=== PATIENT | female | born 1965 | race Caucasian/White ===

== ENCOUNTER 2019-07-28 19:29 | Inpatient (IN) | payer OTHER ==
[2019-07-28] MEDS ORDERED: fentaNYL (PF) 50 MCG/ML 2 ML AMP ONE (19:43)
[2019-07-28] MEDS ORDERED: LIDOCAINE 1% INJ 10MG/ML (20 ML MDV) SQ ONE (19:46)
[2019-07-28] MEDS ORDERED: fentaNYL (PF) 50 MCG/ML 2 ML AMP IV ONE (19:46)
[2019-07-28] MEDS ORDERED: MIDAZOLAM 2 MG/2 ML VIAL IV ONE (19:46)
[2019-07-28] MEDS ORDERED: SODIUM CHLORIDE 0.9% 500 ML 500 ML IV ONE (19:53)
[2019-07-28] MEDS ORDERED: RX INFO: IV CONTRAST WAS GIVEN 1 EACH MISC MISCELLANE PRN (20:16)
[2019-07-28] MEDS ORDERED: NITROGLYCERIN-D5W PMX 50 MG in DEXTROSE/WATER 1 250ML.BAG IV ONE (20:16)
[2019-07-28] MEDS ORDERED: IOPAMIDOL-370 125ML BTL INJ ONE (20:16)
[2019-07-28] MEDS ORDERED: LABETALOL 5 MG/ML VIAL MDV IVP ONE (20:20)
[2019-07-28] MEDS ORDERED: NITROGLYCERIN SL TABS 0.4 MG TAB SUBLINGUAL PRN (20:26)
--- NOTE | 2019-07-28 20:33 | P.CARDCATH ---
Date of Procedure: 07/28/19 Preoperative Diagnosis: Subacute HI Postoperative Diagnosis: Severe triple-vessel disease including left main Procedure(s) Performed: Left heart catheterization with selective coronary arteriography Description of Procedure: HISTORY: This is a 64-year-old female with no significant medical history who was admitted to [facility] emergency room with complaints of ongoing chest pain for 10 days. Complaining of burning sensation. Finally patient came to the hospital. She denied any nausea vomiting, sweating or shortness of breath. Initial EKG shows some Q waves and mild ST-T changes in the inferior leads. Patient had computed tomography scan of the chest and other evaluations. She was treated with Dilaudid and nitroglycerin with relief of pain. Patient also had significant elevation of the blood pressure. Her first troponin was 16 and subsequently went up to 45. Bedside echocardiogram showed hypokinesis of the inferior wall and also mid anterior wall. Ejection fraction is about 45%. Patient is advised to have cardiac catheterization for definitive diagnosis CONSENT:I have discussed the risks, benefits and alternative therapies for the above-mentioned procedure and for both sedation/analgesia as well as necessary blood product administration, if indicated, as they pertain to this patient. The patient has indicated understanding and acceptance of the risks and procedures discussed. PROCEDURE: Patient was brought to the lab in a fasting state. Patient was given some IV sedation. The right groin is infiltrated with lidocaine and right femoral artery was entered using Seldinger technique. A 6-Wolof catheter was left in place and selective coronary arteriography and was performed. Patient tolerated the procedure well. Femoral angiogram was performed and Angio-Seal was applied for hemostasis. No immediate complications were noted and patient was transferred to [facility] in a stable condition Conscious Sedation: Versed 2mg Fentanyl 50 g Duration 19minutes HEMODYNAMICS: The aortic pressure is about 200 110. Left ventricle end- diastolic pressure is about 15. No gradient across the aortic valve SELECTIVE CORONARY ARTERIOGRAPHY: LEFT MAIN: There is eccentric 60% stenosis of the distal left main extending into the origin of the LAD and also circumflex THE LEFT ANTERIOR DESCENDING CORONARY ARTERY: Ostial lesion. The rest of the LAD is free of occlusive disease. There is a diagonal branch which is about 80-90% stenosis involving the long segment THE LEFT CIRCUMFLEX AND IS CORONARY ARTERY: Moderate caliber vessel with diffuse disease. Provides collaterals to the distal RCA THE RIGHT CORONARY ARTERY: Nondominant and seemed to be chronically occluded LEFT VENTRICULOGRAPHY: Not performed FINAL IMPRESSION:, Severe triple-vessel disease including left main PLAN:. The case is reviewed with Dr. CARLOS Field. Suggested bypass surgery as soon as possible. Cardiac surgeon is consulted PROGNOSIS: Guarded
--- NOTE | 2019-07-28 20:38 | P.HPCAR ---
History of Present Illness H&P Date: 07/28/19 This is a 54-year-old female with family history of ischemic or disease presented to emergency room output [place] with complaints of burning chest pain for the last 10 days. Finally upon insistence of family. Patient came to the emergency room. Patient was having severe burning pain and high blood pressures on arrival. EKG shows some Q waves pattern and mild ST-T changes in inferior leads suggestive of possible subacute [place]. Her troponins initially were 16 and subsequently went up to 45. Her pains were relieved with IV nitroglycerin and Dilaudid. Because of ongoing symptoms and abnormal EKG patient is advised to have a cardiac catheterization and was brought to dental laboratory worker. At the time of my evaluation. Patient is not having any chest pain. Patient is tired. Denied any shortness of breath. Chest x-ray did not show any CHF. Review of Systems Not obtained Physical Exam Vitals: Intake and Output 07/28/19 07/28/19 07/28/19 06:59 14:59 22:59 Intake Total 300 Balance 300 Intake: IV 300 GENERAL EXAM: Patient is alert and oriented and doesn't appear to be in any acute distress HEENT: Normocephalic. Normal reaction of pupils, equal size, normal range of extraocular motion. No erythema or exudates in the throat. NECK: No masses, no nuchal rigidity. CHEST: No chest wall deformity. LUNGS: Equal air entry with no crackles or wheeze. HEART: S1 and S2 normal with no audible mumurs or gallops. Regular rhythm, femorals equal on both sides.. ABDOMEN: No hepatosplenomegaly, normal bowel sounds, no guarding or rigidity. SKIN: No rashes CENTRAL NERVOUS SYSTEM: No focal deficits. EXTREMITIES: No cyanosis, clubbing or edema. Physical Examination Intake and Output 07/28/19 07/28/19 07/28/19 06:59 14:59 22:59 Intake Total 300 Balance 300 Intake: IV 300 Results Current Medications Generic Name Dose Route Start Last Admin Trade Name Freq PRN Reason Stop Dose Admin Aspirin 81 mg 07/28/19 21:00 Aspirin PO HS VIRGEN Atorvastatin Calcium 80 mg 07/29/19 09:00 Lipitor PO DAILY REPLACED BY [facility] Sodium Chloride 1,000 mls @ 75 mls/hr 07/28/19 20:30 Saline 0.9% IV .[id number] REPLACED BY [facility] Metoprolol Tartrate 50 mg 07/28/19 21:00 Lopressor PO BID VIRGEN Miscellaneous Information 1 each 07/28/19 20:16 Rx Info: Iv Contrast Was Given MISCELLANE 07/30/19 20:16 DAILY PRN Per Protocol Nitroglycerin 0.4 mg 07/28/19 20:26 Nitrostat SUBLINGUAL Q5M PRN Chest Pain Intake and Output 07/28/19 07/28/19 07/28/19 06:59 14:59 22:59 Intake Total 300 Balance 300 Intake: IV 300 EKG Interpretations (text) Sinus rhythm with the ST-T changes in inferior leads with possible Q waves Assessment and Plan (1) Myocardial infarction Status: Acute Code(s): I21.9 - ACUTE MYOCARDIAL INFARCTION, UNSPECIFIED SNOMED Code(s): 34692583 (2) Essential hypertension Status: Acute Code(s): I10 - ESSENTIAL (PRIMARY) HYPERTENSION SNOMED Code(s): 70085032 (3) Anxiety Status: Acute Code(s): F41.9 - ANXIETY DISORDER, UNSPECIFIED SNOMED Code(s): 59972782 Plan: Procedure cardiac catheterization. Continue with IV heparin and IV nitroglycerin. Add beta ed, statin and aspirin. Get an echocardiogram. Further examination depend upon clinical course
[2019-07-28] MEDS: ASPIRIN 81 MG PO SCH (21:14)
[2019-07-28] MEDS: METOPROLOL TARTRATE 50 MG TAB PO SCH (21:14)
[2019-07-28] MEDS: SODIUM CHLORIDE 0.9% 1,000 ML IV SCH (21:21)
[2019-07-28] MEDS ORDERED: LABETALOL 5 MG/ML VIAL MDV IVP SCH (21:51)
[2019-07-28] MEDS: IBUPROFEN 200 MG TAB PO PRN (22:47)
[2019-07-28] MEDS ORDERED: ONDANSETRON 4 MG/2 ML VIAL IVP PRN (23:01)
[2019-07-28] MEDS ORDERED: LABETALOL 5 MG/ML VIAL MDV IVP PRN (23:37)
[2019-07-29 00:16] LABS: Magnesium 1.9 mg/dL (1.6-2.3)
[2019-07-29 01:31] LABS: T4, Free (Free Thyroxine) 1.38 ng/dL (0.78-2.19)
[2019-07-29 02:04] LABS: Appearance,Urine Clear (Clear); Bilirubin,Urine Negative (Negative); Blood,Urine Negative (Negative); Color,Urine Light Yellow; Glucose,Urine (UA) 4+ (Negative); Leukocyte Esterase,Urine Negative (Negative); Nitrite,Urine Negative (Negative); PH, Urine 5.5 (5.0-8.0); Protein,Urine Trace (Negative); Urobilinogen,Urine <2.0 mg/dL (<2.0)
[2019-07-29 02:08] LABS: Specific Gravity,Urine >1.050 (1.001-1.035)
[2019-07-29 02:10] LABS: Ketones,Urine 3+ (Negative)
[2019-07-29 02:35] LABS: Glucose,Whole Blood 262 mg/dL (75-99)
[2019-07-29 04:20] LABS: Glucose,Whole Blood 292 mg/dL (75-99)
[2019-07-29] MEDS: INSULIN ASPART (NovoLOG) 100 UNIT/ML VIAL SQ SCH ×5 (04:28→20:17)
[2019-07-29 05:55] LABS: Basophils % (A) 0 %; Eosinophils # (A) 0.1 k/uL (0-0.7); Eosinophils % (A) 0 %; HGB 14.3 gm/dL (11.4-16.0); Lymphocytes # (A) 3.1 k/uL (1.0-4.8); Lymphocytes % (A) 18 %; MCH 30.5 pg (25.0-35.0); MCHC 33.3 g/dL (31.0-37.0); MCV 91.5 fL (80.0-100.0); Mean Platelet Volume 8.2; Monocytes # (A) 0.7 k/uL (0-1.0); Monocytes % (A) 4 %; Neutrophils # (A) 13.1 k/uL (1.3-7.7); Neutrophils % (A) 76 %; Platelet Count 253 k/uL (150-450); RDW 12.7 % (11.5-15.5); WBC 17.1 k/uL (3.8-10.6)
[2019-07-29 06:04] LABS: INR 0.9 (<1.2); Partial Thromboplastin Time 22.4 sec (22.0-30.0); Prothrombin Time 9.7 sec (9.0-12.0)
[2019-07-29 06:16] LABS: ALT 38 U/L (4-34); AST 176 U/L (14-36); African American GFR (CKD) >90 (>60 ml/min/1.73 sqM); Albumin 3.5 g/dL (3.5-5.0); Alkaline Phosphatase 114 U/L (38-126); Anion Gap 9 mmol/L; Blood Urea Nitrogen 11 mg/dL (7-17); Calcium 8.5 mg/dL (8.4-10.2); Carbon Dioxide 20 mmol/L (22-30); Chloride 106 mmol/L (98-107); Cholesterol 293 mg/dL (<200); Glucose 272 mg/dL (74-99); HDL Cholesterol 34 mg/dL (40-60); Non-African American GFR(CKD) >90 (>60 ml/min/1.73 sqM); Potassium 4.1 mmol/L (3.5-5.1); Sodium 135 mmol/L (137-145); Total Bilirubin 0.5 mg/dL (0.2-1.3); Total Protein 6.3 g/dL (6.3-8.2)
[2019-07-29 06:37] LABS: Triglycerides 597 mg/dL (<150)
[2019-07-29 07:53] LABS: Glucose,Whole Blood 234 mg/dL (75-99)
[2019-07-29] MEDS ORDERED: ATORVASTATIN 80 MG TAB PO SCH (09:00)
--- NOTE | 2019-07-29 09:59 | US ---
EXAMINATION TYPE: US carotid duplex BILAT DATE OF EXAM: 07/29/2019 COMPARISON: NONE CLINICAL HISTORY: Pre-Op Cardiac Surgery. Pre op heart surgery. EXAM MEASUREMENTS: RIGHT: Peak Systolic Velocity (PSV) cm/sec ----- Right CCA: 59.5 ----- Right ICA: 125.9 ----- Right ECA: 249.3 ICA/CCA ratio: 2.1 RIGHT: End Diastole cm/sec ----- Right CCA: 14.4 ----- Right ICA: 25.4 ----- Right ECA: 31.3 LEFT: Peak Systolic Velocity (PSV) cm/sec ----- Left CCA: 74.1 ----- Left ICA: 121.0 ----- Left ECA: 115.9 ICA/CCA ratio: 1.6 LEFT: End Diastole cm/sec ----- Left CCA: 17.6 ----- Left ICA: 27.3 ----- Left ECA: 18.4 VERTEBRALS (direction of flow): Right Vertebral: Antegrade Left Vertebral: Antegrade Rhythm: Normal Elevated velocity Right ECA. No significant stenosis seen. IMPRESSION: 1. 50-69% BY DIAMETER STENOSIS OF THE PROXIMAL RIGHT ICA. 2. ELEVATED FLOW VELOCITY, RIGHT ECA. Criteria for Assigning % of Stenosis / Diameter reduction (Estimation based on the indirect measurements of the internal carotid artery velocities (ICA PSV). 1. Normal (no stenosis)=ICA PSV < 125 cm/s: ratio < 2.0: ICA EDV<40 cm/s. 2. Less than 50% stenosis=ICA PSV < 125 cm/s: ratio < 2.0: ICA EDV<40 cm/s. 3. 50 to 69% stenosis=ICA PSV of 125 to 230 cm/s: ration 2.0 ? 4.0: ICA EDV 40-100 cm/s. 4. Greater than 70% stenosis to near occlusion= ICA PSV > 230 cm/s: ratio > 4.0: ICA EDV > 100 cm/s. 5. Near occlusion= ICA PSV velocities may be low or undetectable: variable ratio and ICA EDV. 6. Total occlusion=unable to detect flow.
[2019-07-29] MEDS ORDERED: HEPARIN SODIUM,PORCINE 5,000 UNIT/ML 1 ML VIAL IV PRN (10:07)
[2019-07-29] MEDS ORDERED: HEPARIN SODIUM,PORCINE 5,000 UNIT/ML 1 ML VIAL IV ONE (10:07)
[2019-07-29] MEDS: IBUPROFEN 200 MG TAB PO PRN ×2 (10:28→17:37)
[2019-07-29] MEDS: ATORVASTATIN 80 MG TAB PO SCH (10:28)
[2019-07-29] MEDS: METOPROLOL TARTRATE 50 MG TAB PO SCH ×2 (10:28→20:19)
--- NOTE | 2019-07-29 10:28 | XR ---
EXAMINATION TYPE: XR chest 2V DATE OF EXAM: 07/29/2019 HISTORY: PreOp Cardiac Surgery. REFERENCE: NONE. FINDINGS: There are prominent lungs are clear. Tubing projects over the left clavicle. Heart size upper limits of normal. Pleural spaces are clear. IMPRESSION: PLEASE CORRELATE CLINICALLY FOR COPD.
[2019-07-29] MEDS: HEPARIN SOD,PORK IN 0.45% NACL 25,000 UNIT in 0.45% NACL 1 250ML.BAG IV SCH (10:31)
[2019-07-29] MEDS: MUPIROCIN 2% OINT 22 GM TUBE NASAL SCH ×2 (10:31→20:19)
[2019-07-29] MEDS: SODIUM CHLORIDE 0.9% 1,000 ML IV SCH ×2 (10:46→23:10)
--- NOTE | 2019-07-29 12:06 | ECHOF ---
Referral Reason:Chest pain and cardiomyopathy MEASUREMENTS -------- HEIGHT: 167.6 cm WEIGHT: 70.8 kg BP: 134/72 RVIDd: 2.4 cm (< 3.3) IVSd: 1.4 cm (0.6 - 1.1) LVIDd: 4.8 cm (3.9 - 5.3) LVPWd: 1.4 cm (0.6 - 1.1) IVSs: 1.6 cm LVIDs: 4.2 cm LVPWs: 1.7 cm LA Diam: 3.5 cm (2.7 - 3.8) LAESV Index (A-L): 21.27 ml/m Ao Diam: 2.9 cm (2.0 - 3.7) AV Cusp: 2.1 cm (1.5 - 2.6) MV EXCURSION: 18.872 mm (> 18.000) MV EF SLOPE: 96 mm/s (70 - 150) EPSS: 1.8 cm MV E Rivas: 1.13 m/s MV DecT: 162 ms MV A Rivas: 0.99 m/s MV E/A Ratio: 1.14 RAP: 5.00 mmHg RVSP: 31.31 mmHg FINDINGS -------- Sinus rhythm. This was a technically adequate study. The left ventricular size is normal. There is moderate concentric left ventricular hypertrophy. O verall left ventricular systolic function is mild-moderately impaired with, an EF between 40 - 45 %. Basal inferior LV wall motion is normal. Mid inferior LV wall motion is normal. Posterior hypok inesis The right ventricle is normal in size. Normal LA size by volume 22+/-6 ml/m2. The right atrium is normal in size. Interatrial and interventricular septum intact. The aortic valve is trileaflet and appears structurally normal. Mild mitral regurgitation is present. Mild tricuspid regurgitation present. Right ventricular systolic pressure is normal at < 35 mmHg. Trace/mild (physiologic) pulmonic regurgitation. The aortic root size is normal. Normal inferior vena cava with normal inspiratory collapse consistent with estimated right atrial pre ssure of 5 mmHg. There is no pericardial effusion. CONCLUSIONS -------- 1. Sinus rhythm. 2. This was a technically adequate study. 3. The left ventricular size is normal. 4. There is moderate concentric left ventricular hypertrophy. 5. Overall left ventricular systolic function is mild-moderately impaired with, an EF between 40 - 45 %. 6. Basal inferior LV wall motion is normal. 7. Mid inferior LV wall motion is normal. 8. Posterior hypokinesis 9. The right ventricle is normal in size. 10. Normal LA size by volume 22+/-6 ml/m2. 11. The right atrium is normal in size. 12. Interatrial and interventricular septum intact. 13. The aortic valve is trileaflet and appears structurally normal. 14. Mild mitral regurgitation is present. 15. Mild tricuspid regurgitation present. 16. Right ventricular systolic pressure is normal at < 35 mmHg. 17. Trace/mild (physiologic) pulmonic regurgitation. 18. The aortic root size is normal. 19. Normal inferior vena cava with normal inspiratory collapse consistent with estimated right atrial pressure of 5 mmHg. 20. There is no pericardial effusion. SLIDE FASTENER CHAIN ASSEMBLER: Anahi Martínez RDCS
[2019-07-29 12:54] LABS: Glucose,Whole Blood 237 mg/dL (75-99)
[2019-07-29 13:04] LABS: Hepatitis A Antibody IgM Non-Reactive (Non-Reactive); Hepatitis B Core IgM Non-Reactive (Non-Reactive); Hepatitis B Surface Antigen Non-Reactive (Non-Reactive); Hepatitis C IgG Antibody Non-Reactive (Non-Reactive)
[2019-07-29 14:24] LABS: Hemoglobin A1C 13.3 % (4.0-6.0)
--- NOTE | 2019-07-29 14:31 | PN ---
PROGRESS NOTE Mrs. Coto is a 64-year-old female who was admitted through emergency room at [facility] with a chest pains lasting for more than 10 days. Her troponins were high, suggestive of myocardial infarction. EKG also showed some subtle changes. Cardiac catheterization revealed total occlusion of the RCA with significant left main disease and also disease involving the ostial circumflex and LAD. The patient is felt to be not a candidate for a percutaneous intervention. She is awaiting to be evaluated and scheduled for open heart surgery. Echocardiogram showed hypokinesis of the inferior segment with ejection fraction of 40-45%. No valvular abnormalities noted. The patient has remained stable. Her groin is soft. No complaints of any chest pain or shortness of breath. Vital signs show blood pressure: 119/91, pulse rate is 84, respirations are 14, afebrile. Saturations are 96%. Lungs appear clear. Heart is regular. No JVD. No peripheral edema. FINAL IMPRESSION: 1. Acute myocardial infarction. 2. Triple-vessel disease including left main. 3. Cardiomyopathy with ejection fraction of 40-45 percent. PLAN: Continue current medical therapy including heparin. Surgical evaluation for open heart surgery as soon as possible. Prognosis is guarded. MMODL / IJN: [id number] /
--- NOTE | 2019-07-29 14:56 | P.GSCN ---
History of Present Illness Consult date: 07/29/19 Reason for Consult: Multivessel coronary artery disease, non-ST elevated myocardial infarction this admission, evaluation for myocardial revascularization surgery. Requesting physician: Harry Jack History of present illness: This is a 54-year-old female patient who does not follow with a primary care physician on a regular basis. She reports that she has not seen a primary care physician in over 30 years. Patient denies any past medical history. She presented to the emergency department yesterday at [facility] with complaints of severe chest pain which radiated across her back and down both of her arms to her elbows. She describes the pain as a heartburn type pain which had been present for about 2-3 weeks. She has been taking antacids without any relief. Her and daughters encouraged her to seek medical attention as the pain wasn't getting any better. She denies any complaints of fever, chills, nausea, vomiting, shortness of breath, presyncope, syncope or palpitations associated with the pain. A 12-lead EKG was completed which showed Q wave pattern with mild STT changes in her inferior leads which were suggestive of a possible subacute myocardial infarction. Her lab results at [facility] showed a WBC count 13.1, hemoglobin 17.0, hematocrit 48.9, elevated blood glucose of 531, AST 37 and a troponin of 16.0. Subsequently, the patient was transferred here to [facility] for further evaluation and treatment recommendations. She was seen by Dr. Jack from [facility]ology [facility] and a cardiac catheterization was perfor med which demonstrated a 60% stenosis to her left main coronary artery, and 80- 90% stenosis to her diagonal branch of her left anterior descending coronary artery, a chronically occluded right coronary artery and collaterals to her distal right coronary artery from her circumflex coronary artery. For further evaluation a 2-D echocardiogram was completed which showed her to have an overall left ventricular systolic function to be mild to moderately impaired with an ejection fraction between 40 and 45%, mild mitral valve regurgitation, mild tricuspid valve regurgitation and trace to mild pulmonic valve regurgitation. Due to the patient's presenting symptoms, elevated troponins, and heart catheterization results Dr. Dru Kelly from cardiothoracic surgery was consulted for further evaluation and recommendations on myocardial revascularization surgery. Review of Systems A 14 point review of systems was completed and was negative except as mentioned in the HPI. Past Medical History Past Medical History: No Reported History Additional Past Medical History / Comment(s): The patient seems to be essentially noncompliant. She has not seen a physician for around 30 years. She counseled above-mentioned comorbidities. History of Any Multi-Drug Resistant Organisms: None Reported Past Surgical History: No Surgical Hx Reported Past Anesthesia/Blood Transfusion Reactions: No Reported Reaction Past Psychological History: No Psychological Hx Reported Smoking Status: Current every day smoker Medications and Allergies Home Medications Medication Instructions Recorded Confirmed Type No Known Home Medications 07/28/19 07/28/19 History Allergies Allergy/AdvReac Type Severity Reaction Status Date / Time No Known Allergies Allergy Unverified 07/28/19 19:30 Surgical - Exam Vital Signs Temp Pulse Resp BP Pulse Ox 98.4 F 93 10 L 166/91 92 L 07/28/19 21:00 07/28/19 21:00 07/28/19 21:00 07/28/19 21:00 07/28/19 21:00 This is a 54-year-old patient who looks appears to be in no acute distress. She is alert, oriented 3. She is hemodynamically stable and is on no inotropic or pressor support. Oxygen saturations are 96% on room air. - General well developed, well nourished, no distress, no pain, obese - Eyes PERRL, normal ocular movement - ENT normal pinna, normal nares, normal mucosa, no hearing loss, no congestion, poor mcfp - Neck Neck is supple, no JVD. no masses, trachea midline, no venous distension carotid bruit: right - Respiratory Lung sounds are essentially clear throughout. No wheezes, rhonchi or crackles. Respirations are symmetrical and nonlabored. - Cardiovascular S1 and S2 present, negative for S3, gallop or murmur. Regular rhythm and rate. - Abdomen Abdomen is soft, nontender and nondistended. Active bowel sounds present in all 4 abdominal quadrants. No guarding or rigidity. No organomegaly appreciated. - Genitourinary Deferred - Rectum Deferred - Integumentary no rash, no growths, no abnormal pigmentation - Neurologic Cranial nerves II through XII intact. normal coordination, normal sensation - Musculoskeletal normal posture - Psychiatric oriented to time, oriented to person, oriented to place, speech is normal, memory intact Results - Labs 07/29/19 05:14 07/29/19 05:14 Abnormal Lab Results - Last 24 Hours (Table) 07/28/19 07/28/19 07/29/19 Range/Units 23:22 23:31 01:38 WBC (3.8-10.6) k/uL Neutrophils # (1.3-7.7) k/uL Sodium (137-145) mmol/L Carbon Dioxide (22-30) mmol/L Creatinine (0.52-1.04) mg/dL Glucose (74-99) mg/dL POC Glucose (mg/dL) (75-99) mg/dL AST (14-36) U/L ALT (4-34) U/L Troponin I 23.100 H* (0.000-0.034) ng/mL Triglycerides (<150) mg/dL Cholesterol (<200) mg/dL HDL Cholesterol (40-60) mg/dL TSH 6.130 H (0.465-4.680) mIU/L Ur Specific [place] >1.050 H (1.001-1.035) Urine Protein Trace H (Negative) Urine Glucose (UA) 4+ H (Negative) Urine Ketones 3+ H (Negative) 07/29/19 07/29/19 07/29/19 Range/Units 02:32 04:18 05:14 WBC (3.8-10.6) k/uL Neutrophils # (1.3-7.7) k/uL Sodium 135 L (137-145) mmol/L Carbon Dioxide 20 L (22-30) mmol/L Creatinine 0.39 L (0.52-1.04) mg/dL Glucose 272 H (74-99) mg/dL POC Glucose (mg/dL) 262 H 292 H (75-99) mg/dL AST 176 H (14-36) U/L ALT 38 H (4-34) U/L Troponin I (0.000-0.034) ng/mL Triglycerides 597 H (<150) mg/dL Cholesterol 293 H (<200) mg/dL HDL Cholesterol 34 L (40-60) mg/dL TSH (0.465-4.680) mIU/L Ur Specific [place] (1.001-1.035) Urine Protein (Negative) Urine Glucose (UA) (Negative) Urine Ketones (Negative) 07/29/19 07/29/19 07/29/19 Range/Units 05:14 05:14 07:52 WBC 17.1 H (3.8-10.6) k/uL Neutrophils # 13.1 H (1.3-7.7) k/uL Sodium (137-145) mmol/L Carbon Dioxide (22-30) mmol/L Creatinine (0.52-1.04) mg/dL Glucose (74-99) mg/dL POC Glucose (mg/dL) 234 H (75-99) mg/dL AST (14-36) U/L ALT (4-34) U/L Troponin I 20.800 H* (0.000-0.034) ng/mL Triglycerides (<150) mg/dL Cholesterol (<200) mg/dL HDL Cholesterol (40-60) mg/dL TSH (0.465-4.680) mIU/L Ur Specific [place] (1.001-1.035) Urine Protein (Negative) Urine Glucose (UA) (Negative) Urine Ketones (Negative) Diabetes panel 07/29/19 Range/Units 05:14 Sodium 135 L (137-145) mmol/L Potassium 4.1 (3.5-5.1) mmol/L Chloride 106 (98-107) mmol/L Carbon Dioxide 20 L (22-30) mmol/L BUN 11 (7-17) mg/dL Creatinine 0.39 L (0.52-1.04) mg/dL Glucose 272 H (74-99) mg/dL Calcium 8.5 (8.4-10.2) mg/dL AST 176 H (14-36) U/L ALT 38 H (4-34) U/L Alkaline Phosphatase 114 (38-126) U/L Total Protein 6.3 (6.3-8.2) g/dL Albumin 3.5 (3.5-5.0) g/dL Triglycerides 597 H (<150) mg/dL HDL Cholesterol 34 L (40-60) mg/dL Thyroid panel 07/28/19 Range/Units 23:22 TSH 6.130 H (0.465-4.680) mIU/L Calcium panel 07/29/19 Range/Units 05:14 Calcium 8.5 (8.4-10.2) mg/dL Albumin 3.5 (3.5-5.0) g/dL Pituitary panel 07/28/19 07/29/19 Range/Units 23:22 05:14 Sodium 135 L (137-145) mmol/L Potassium 4.1 (3.5-5.1) mmol/L Chloride 106 (98-107) mmol/L Carbon Dioxide 20 L (22-30) mmol/L BUN 11 (7-17) mg/dL Creatinine 0.39 L (0.52-1.04) mg/dL Glucose 272 H (74-99) mg/dL Calcium 8.5 (8.4-10.2) mg/dL TSH 6.130 H (0.465-4.680) mIU/L Adrenal panel 07/29/19 Range/Units 05:14 Sodium 135 L (137-145) mmol/L Potassium 4.1 (3.5-5.1) mmol/L Chloride 106 (98-107) mmol/L Carbon Dioxide 20 L (22-30) mmol/L BUN 11 (7-17) mg/dL Creatinine 0.39 L (0.52-1.04) mg/dL Glucose 272 H (74-99) mg/dL Calcium 8.5 (8.4-10.2) mg/dL Total Bilirubin 0.5 (0.2-1.3) mg/dL AST 176 H (14-36) U/L ALT 38 H (4-34) U/L Alkaline Phosphatase 114 (38-126) U/L Total Protein 6.3 (6.3-8.2) g/dL Albumin 3.5 (3.5-5.0) g/dL - Imaging Additional studies: Cardiac catheterization films and 2-D echocardiogram films reviewed by Dr. Dru Kelly. Assessment and Plan Assessment: 1. Symptomatic multivessel coronary artery disease with left main disease 2. Acute non-ST elevated myocardial infarction this admission 3. Hypertension 4. Dyslipidemia 5. Newly diagnosed diabetes mellitus, admission glucose of 531 6. Chronic ongoing tobacco abuse Plan: The patient was seen and examined at her bedside in the intensive care unit by Dr. Dru Kelly. Her chart and diagnostics were reviewed. Dr. Kelly discussed with the patient the findings on her heart catheterization and 2-D ech ocardiogram. Treatment options for were discussed with the patient including myocardial revascularization surgery. Risks and benefits of myocardial revascularization surgery discussed with the patient and knowing the risks and benefits the patient wishes to proceed with myocardial revascularization surgery. The patient will tentatively be scheduled for myocardial revascularization surgery with left internal mammary artery, left radial artery and endoscopic vein harvest on , 08/03/2019 to be performed by Dr. Kelly. Preoperative teaching and preoperative testing has been initiated. She will need medical optimization with aspirin, statin, beta ed, heparin drip and blood sugar control. Once her preoperative testing has been collected an STS risk score will be calculated in discussed with the patient by Dr. Kelly. A 5 m walk test will be completed with the patient tomorrow 07/30/2019. Dr. Kelly did discuss the above with Dr. Jack and he also is in agreement w ith the plan. The importance of smoking cessation has been discussed with the patient. Medical management and other comorbidities per primary care service and cardiology recommendations. We will repeat a CBC in the morning 07/30/2019, if her WBC count remains elevated infectious disease will be consulted for further evaluation and recommendations. Dr. Dodson from pulmonary medicine has been consulted for preoperative and postoperative pulmonary management. More recommendations to follow based on patient's clinical course. She did have a COVID 19 test completed at [facility] which demonstrated a negative result. Thank you Dr. Jack for this consult and we look forward to working with you in the care of this patient. Time with Patient: Greater than 30
[2019-07-29 16:10] LABS: Glucose,Whole Blood 281 mg/dL (75-99)
[2019-07-29] MEDS: ASPIRIN 81 MG PO SCH (20:19)
[2019-07-29 20:23] LABS: Glucose,Whole Blood 193 mg/dL (75-99)
[2019-07-29] MEDS ORDERED: INSULIN DETEMIR (LEVEMIR) 100 UNIT/ML SYR SQ SCH (21:00)
[2019-07-30 03:16] LABS: Basophils # (A) 0.1 k/uL (0-0.2); Basophils % (A) 0 %; Eosinophils # (A) 0.1 k/uL (0-0.7); Eosinophils % (A) 1 %; HCT 41.2 % (34.0-46.0); HGB 13.8 gm/dL (11.4-16.0); Lymphocytes # (A) 4.1 k/uL (1.0-4.8); Lymphocytes % (A) 32 %; MCH 30.8 pg (25.0-35.0); MCHC 33.6 g/dL (31.0-37.0); MCV 91.6 fL (80.0-100.0); Mean Platelet Volume 9.4; Monocytes # (A) 0.7 k/uL (0-1.0); Monocytes % (A) 6 %; Neutrophils # (A) 7.9 k/uL (1.3-7.7); Neutrophils % (A) 60 %; Platelet Count 224 k/uL (150-450); RDW 12.8 % (11.5-15.5); WBC 13.1 k/uL (3.8-10.6)
[2019-07-30 03:32] LABS: AST 258 U/L (14-36); African American GFR (CKD) >90 (>60 ml/min/1.73 sqM); Albumin 3.5 g/dL (3.5-5.0); Alkaline Phosphatase 144 U/L (38-126); Blood Urea Nitrogen 13 mg/dL (7-17); Calcium 8.7 mg/dL (8.4-10.2); Carbon Dioxide 19 mmol/L (22-30); Chloride 107 mmol/L (98-107); Glucose 214 mg/dL (74-99); Non-African American GFR(CKD) >90 (>60 ml/min/1.73 sqM); Total Bilirubin 0.6 mg/dL (0.2-1.3); Total Protein 6.2 g/dL (6.3-8.2)
[2019-07-30 03:44] LABS: ALT 117 U/L (4-34); Anion Gap 8 mmol/L; Potassium 3.7 mmol/L (3.5-5.1); Sodium 134 mmol/L (137-145)
[2019-07-30] MEDS ORDERED: Potassium Replacement Protocol 1 EACH MISC MISCELLANE PRN (06:19)
[2019-07-30] MEDS ORDERED: POTASSIUM CHLORIDE ER 20 MEQ TAB.ER PO SCH (07:00)
[2019-07-30 07:13] LABS: Glucose,Whole Blood 237 mg/dL (75-99)
[2019-07-30] MEDS: INSULIN ASPART (NovoLOG) 100 UNIT/ML VIAL SQ SCH (07:13)
[2019-07-30] MEDS ORDERED: ACETAMINOPHEN TAB 325 MG TAB PO PRN (07:29)
[2019-07-30] MEDS ORDERED: INSULIN DETEMIR (LEVEMIR) 100 UNIT/ML SYR SQ ONE (08:00)
[2019-07-30] MEDS ORDERED: IBUPROFEN 200 MG TAB PO PRN (08:06)
[2019-07-30] MEDS: METOPROLOL TARTRATE 50 MG TAB PO SCH ×2 (08:07→21:29)
[2019-07-30] MEDS: MUPIROCIN 2% OINT 22 GM TUBE NASAL SCH ×2 (08:08→21:39)
[2019-07-30] MEDS: ATORVASTATIN 80 MG TAB PO SCH (08:08)
--- NOTE | 2019-07-30 08:37 | P.CNPUL ---
History of Present Illness Consult date: 07/29/19 Chief complaint: Chest pain, possible bypass surgery History of present illness: A 54-year-old female patient came into the ED with burning chest pain of 10 days duration. The patient was having also elevated blood pressure on arrival. EKG showed Q-wave pattern and mild ST T-segment changes in inferior leads suggestive of subacute myocardial infarction. Troponins came back at 16 indicating a non- STEMI. Note that the subsequent troponin came at 45. The patient was given nitroglycerin and Dilaudid for pain. The patient was placed on a combination of aspirin, heparin and metoprolol 50 mg by mouth twice a day. The patient was subsequently taken for cardiac catheterization and the cath showed triple-vessel disease that was quite severe. Left main 60% stenosis distally extending into the origin of the LAD and circumflex. The LAD showed an ostial lesion and the rest of the LAD was free of any occlusive disease. There was a diagonal branch which included around 80-90% stenosis. The circumflex showed moderate caliber disease with collaterals to the distal RCA. The right coronary artery showed nondominant vessel and seemed to be chronically occluded. LV ventriculography was not done. Following that, the patient was brought in to the ICU for further monitoring. Cardiac thoracic consultation was placed in constellation for cardiac surgery. The patient is a chronic smoker. She smokes one half pack of cigarettes a day. Chest x-ray shows no acute abnormalities and essentially. She is currently on 2 L about 2 by nasal cannula at 96 L and we were able to put her down to room air oxygen. Note that her admission blood sugar was quite elevated above 500 at [facility]. She also has +4 glucose and urine indicating an underlying diabetes mellitus. Her triglyceride level is 597 related to her poor sugar control. Inadequate total cholesterol is at 293. Right carotid artery evaluation showed a 50-70% occlusion of the proximal right ICA. Left was essentially within normal limits without any stenosis. She is currently still on IV heparin. She was also placed on Avel[employer] stay. Coverage. She is hemodynamically stable. She was also started on high-dose statins for her hyperlipidemia. Review of Systems Constitutional: Denies chills, Denies fever Eyes: denies as per HPI, denies blurred vision, denies bulging eye, denies decreased vision, denies diplopia, denies discharge, denies dry eye, denies irritation, denies itching, denies pain, denies photophobia, denies loss of peripheral vision, denies loss of vision, denies tunnel vision/blind spots Ears: deny: decreased hearing, ear discharge, earache, tinnitus Ears, nose, mouth and throat: Denies headache, Denies sore throat Breasts: right: as per HPI, absent: change in shape, gynecomastia, masses, n ipple discharge, pain, skin changes, swelling Cardiovascular: Reports chest pain, Reports decreased exercise tolerance Respiratory: Reports as per HPI Gastrointestinal: Reports as per HPI Genitourinary: Reports as per HPI Menstruation: Reports as per HPI Musculoskeletal: Reports as per HPI Musculoskeletal: absent: ankle pain, ankle stiffness, ankle swelling Integumentary: Reports as per HPI Neurological: Reports as per HPI Psychiatric: Reports as per HPI Endocrine: Reports as per HPI Hematologic/Lymphatic: Reports as per HPI Allergic/Immunologic: Reports as per HPI Past Medical History Past Medical History: No Reported History Additional Past Medical History / Comment(s): The patient seems to be essen tiaestefaniay noncompliant. She has not seen a physician for around 30 years. She counseled above-mentioned comorbidities. History of Any Multi-Drug Resistant Organisms: None Reported Past Surgical History: No Surgical Hx Reported Past Anesthesia/Blood Transfusion Reactions: No Reported Reaction Past Psychological History: No Psychological Hx Reported Smoking Status: Current every day smoker Medications and Allergies Home Medications Medication Instructions Recorded Confirmed Type No Known Home Medications 07/28/19 07/28/19 History Allergies Allergy/AdvReac Type Severity Reaction Status Date / Time acetaminophen [From Tylenol] AdvReac Confusion Verified 07/30/19 08:05 Physical Exam Vitals: Vital Signs Temp Pulse Resp BP Pulse Ox 07/29/19 07:00 84 14 119/91 96 07/29/19 06:00 89 12 134/72 98 07/29/19 05:00 92 14 135/84 98 07/29/19 04:00 98.2 F 82 12 124/66 96 07/29/19 03:00 92 14 139/84 95 07/29/19 02:00 94 11 L 123/76 95 07/29/19 01:00 84 15 117/71 95 07/29/19 00:00 98.4 F 88 14 156/97 97 07/28/19 23:00 93 16 148/86 96 07/28/19 22:00 96 14 149/92 96 07/28/19 21:00 98.4 F 93 10 L 166/91 92 L Intake and Output 07/28/19 07/29/19 07/29/19 22:59 06:59 14:59 Intake Total 375 600 75 Output Total 0 0 Balance 375 600 75 Intake: IV 300 Intake, IV Titration 75 600 75 Amount Sodium Chloride 0.9% 1, 75 600 75 000 ml @ 75 mls/hr IV . [id number] [facility] Rx#:[id number] Output: Urine 0 0 Other: # Voids 1 # Bowel Movements 1 Weight 71.2 kg 71 kg The patient appeared well nourished and normally developed. Vital signs as documented. Head exam is unremarkable. No scleral icterus or corneal arcus noted. Neck is without jugular venous distension, thyromegaly, or carotid bruits. Carotid upstrokes are brisk bilaterally. Lungs are clear to auscultation and percussion. Cardiac exam reveals the PMI to be normally sized and situated. Rhythm is regular. First and second heart sounds normal. No murmurs, rubs or gallops. Abdominal exam reveals normal bowel sounds, no masses, no organomegaly and no aortic enlargement. Extremities are nonedematous and both femoral and pedal pulses are normal.Examination of the skin revealed no evidence of si gnificant rashes, suspicious appearing nevi or other concerning lesions. Neurologically awake and alert and is no focal neurological deficits. Results - Laboratory Findings CBC and BMP: 07/30/19 02:34 07/30/19 02:34 PT/INR, D-dimer PT 9.7 sec (9.0-12.0) 07/29/19 05:14 INR 0.9 (<1.2) 07/29/19 05:14 Abnormal lab findings: Abnormal Labs 07/28/19 07/28/19 07/29/19 23:22 23:31 01:38 WBC Neutrophils # Sodium Carbon Dioxide Creatinine Glucose POC Glucose (mg/dL) AST ALT Troponin I 23.100 H* Triglycerides Cholesterol HDL Cholesterol TSH 6.130 H Ur Specific [place] >1.050 H Urine Protein Trace H Urine Glucose (UA) 4+ H Urine Ketones 3+ H 07/29/19 07/29/19 07/29/19 02:32 04:18 05:14 WBC Neutrophils # Sodium 135 L Carbon Dioxide 20 L Creatinine 0.39 L Glucose 272 H POC Glucose (mg/dL) 262 H 292 H AST 176 H ALT 38 H Troponin I Triglycerides 597 H Cholesterol 293 H HDL Cholesterol 34 L TSH Ur Specific [place] Urine Protein Urine Glucose (UA) Urine Ketones 07/29/19 07/29/19 07/29/19 05:14 05:14 07:52 WBC 17.1 H Neutrophils # 13.1 H Sodium Carbon Dioxide Creatinine Glucose POC Glucose (mg/dL) 234 H AST ALT Troponin I 20.800 H* Triglycerides Cholesterol HDL Cholesterol TSH Ur Specific [place] Urine Protein Urine Glucose (UA) Urine Ketones - Diagnostic Findings Chest x-ray: image reviewed Assessment and Plan Plan: 1 acute non-ST segment elevation myocardial infarction with secondary chest pain. The patient is post cardiac catheterization indicating multivessel cor onary artery disease 2 multivessel coronary artery disease with triple-vessel involvement, and the patient has completed a cardiac catheterization awaiting a CT surgery evaluation regarding the possibility of coronary artery bypass surgery. She has several risk factors for coronary artery disease 3 diabetes mellitus, recently diagnosed, elevated blood sugar currently on insulin scale coverage. The patient has +4 glucose and ketone the urine 4 hypertension 5 hypertriglyceridemia rated to poorly controlled blood sugars 6 hypercholesterolemia 7 smoker 8 mild leukocytosis 9 right carotid artery disease in order of 50-69% Plan Bedside spirometry to assess FEV1 Provide the patient incentive spirometer Chest x-ray was reviewed Continue aspirin and IV heparin Continue metoprolol Continue Lipitor Continue the sliding scale coverage and the patient would likely lead long- acting insulin at a later stage Obviously, her medication noncompliance or medical poor compliance may be an issue even if surgery is performed in this patient We'll continue to follow and will make further recommendations based on her progress
--- NOTE | 2019-07-30 11:41 | P.PN ---
Subjective Progress Note Date: 07/30/19 On today's evaluation of 07/30/2019, the patient has no specific complaints she is resting comfortably in bed. She remains on IV heparin. She is free of any angina. She is awaiting cardiac bypass surgery that will be done on Wednesday which is 2 days from now. No chest pain. She is a chronic smoker. Her FEV1 is order of 47% of predicted consistent with moderately restrictive disease related to her poor effort. Her exhalation was less than 6 seconds and this is a suboptimal spirometry which is noted with reflection of an underlying lung capacity. She gave a very poor effort on these spirometry is. The patient was also noted to be somewhat steady her gait. I think she needs to be investigated further with a CAT scan of the brain as part of her workup or preop workup for cardiac surgery. No other new complaints otherwise for now. She looks a bit indifferent about her health. Her STS score and is to be also calculated. Objective - Vital Signs Vital signs: Vital Signs Temp 99.3 F 07/30/19 08:00 Pulse 72 07/30/19 11:00 Resp 19 07/30/19 11:00 BP 121/64 07/30/19 11:00 Pulse Ox 94 L 07/30/19 11:00 Intake & Output 07/29/19 07/30/19 07/30/19 18:59 06:59 18:59 Intake Total 900 985.342 375 Output Total 0 0 0 Balance 900 985.342 375 Weight 71 kg Intake: IV 825 900 375 Sodium Chloride 0.9% 1, 825 900 375 000 ml @ 75 mls/hr IV . [id number] [facility] Rx#:[id number] Intake, IV Titration 75 85.342 Amount Heparin Sod,Pork in 0.45% 85.342 NaCl 25,000 unit In 0.45 % NaCl 1 250ml.bag @ 12 UNITS/KG/HR 8.52 mls/hr IV .Q24H [facility] Rx#: [id number] Sodium Chloride 0.9% 1, 75 000 ml @ 75 mls/hr IV . [id number] [facility] Rx#:[id number] Output: Urine 0 0 0 Other: Voiding Method Toilet # Voids 1 1 1 - Exam This is a 54-year-old patient who looks appears to be in no acute distress. She is alert, oriented 3. She is hemodynamically stable and is on no inotropic or pressor support. Oxygen saturations are 96% on room air. - General well developed, well nourished, no distress, no pain, obese - Eyes PERRL, normal ocular movement - ENT normal pinna, normal nares, normal mucosa, no hearing loss, no congestion, poor retirement - Neck Neck is supple, no JVD. no masses, trachea midline, no venous distension carotid bruit: right - Respiratory Lung sounds are essentially clear throughout. No wheezes, rhonchi or crackles. Respirations are symmetrical and nonlabored. - Cardiovascular S1 and S2 present, negative for S3, gallop or murmur. Regular rhythm and rate. - Abdomen Abdomen is soft, nontender and nondistended. Active bowel sounds present in all 4 abdominal quadrants. No guarding or rigidity. No organomegaly appreciated. - Genitourinary Deferred - Rectum Deferred - Integumentary no rash, no growths, no abnormal pigmentation - Neurologic Cranial nerves II through XII intact. normal coordination, normal sensation - Musculoskeletal normal posture - Psychiatric oriented to time, oriented to person, oriented to place, speech is normal, memory intact - Labs CBC & Chem 7: 07/30/19 02:34 07/30/19 02:34 Labs: Abnormal Lab Results - Last 24 Hours (Table) 07/29/19 07/29/19 07/29/19 Range/Units 05:14 12:51 16:09 WBC (3.8-10.6) k/uL Neutrophils # (1.3-7.7) k/uL APTT (22.0-30.0) sec Sodium (137-145) mmol/L Carbon Dioxide (22-30) mmol/L Creatinine (0.52-1.04) mg/dL Glucose (74-99) mg/dL POC Glucose (mg/dL) 237 H 281 H (75-99) mg/dL Hemoglobin A1c 13.3 H (4.0-6.0) % AST (14-36) U/L ALT (4-34) U/L Alkaline Phosphatase (38-126) U/L Troponin I (0.000-0.034) ng/mL Total Protein (6.3-8.2) g/dL 07/29/19 07/29/19 07/30/19 Range/Units 18:34 20:13 02:34 WBC 13.1 H (3.8-10.6) k/uL Neutrophils # 7.9 H (1.3-7.7) k/uL APTT 38.1 H (22.0-30.0) sec Sodium (137-145) mmol/L Carbon Dioxide (22-30) mmol/L Creatinine (0.52-1.04) mg/dL Glucose (74-99) mg/dL POC Glucose (mg/dL) 193 H (75-99) mg/dL Hemoglobin A1c (4.0-6.0) % AST (14-36) U/L ALT (4-34) U/L Alkaline Phosphatase (38-126) U/L Troponin I (0.000-0.034) ng/mL Total Protein (6.3-8.2) g/dL 07/30/19 07/30/19 07/30/19 Range/Units 02:34 02:34 02:34 WBC (3.8-10.6) k/uL Neutrophils # (1.3-7.7) k/uL APTT 56.0 H (22.0-30.0) sec Sodium 134 L (137-145) mmol/L Carbon Dioxide 19 L (22-30) mmol/L Creatinine 0.40 L (0.52-1.04) mg/dL Glucose 214 H (74-99) mg/dL POC Glucose (mg/dL) (75-99) mg/dL Hemoglobin A1c (4.0-6.0) % AST 258 H (14-36) U/L ALT 117 H (4-34) U/L Alkaline Phosphatase 144 H (38-126) U/L Troponin I 16.700 H* (0.000-0.034) ng/mL Total Protein 6.2 L (6.3-8.2) g/dL 07/30/19 Range/Units 07:02 WBC (3.8-10.6) k/uL Neutrophils # (1.3-7.7) k/uL APTT (22.0-30.0) sec Sodium (137-145) mmol/L Carbon Dioxide (22-30) mmol/L Creatinine (0.52-1.04) mg/dL Glucose (74-99) mg/dL POC Glucose (mg/dL) 237 H (75-99) mg/dL Hemoglobin A1c (4.0-6.0) % AST (14-36) U/L ALT (4-34) U/L Alkaline Phosphatase (38-126) U/L Troponin I (0.000-0.034) ng/mL Total Protein (6.3-8.2) g/dL Microbiology - Last 24 Hours (Table) 07/29/19 09:58 Nasal Screen MRSA/MSSA - Preliminary Nasopharyngeal Swab Assessment and Plan Plan: 1 acute non-ST segment elevation myocardial infarction with secondary chest p ain. The patient is post cardiac catheterization indicating multivessel coronary artery disease 2 multivessel coronary artery disease with triple-vessel involvement, and the patient has completed a cardiac catheterization awaiting a CT surgery evaluation regarding the possibility of coronary artery bypass surgery. She has several risk factors for coronary artery disease 3 diabetes mellitus, recently diagnosed, elevated blood sugar currently on insulin scale coverage. The patient has +4 glucose and ketone the urine 4 hypertension 5 hypertriglyceridemia rated to poorly controlled blood sugars 6 hypercholesterolemia 7 smoker 8 mild leukocytosis 9 right carotid artery disease in order of 50-69% Plan Bedside spirometry to assess FEV1 show that the patient has an FEV1 of 47% consistent with restrictive pattern more than obstructive pattern. I think her effort was poor and she blew only 3.9 second which is not meeting ATS standards. I there is something often this patient's understanding of her health and probably there may be a neurologic deficit and for that reason I'm recommending a neurology consultation and a CAT scan of the brain especially that her gait is somewhat dysfunctional. Awaiting the STS score. Provide the patient incentive spirometer Chest x-ray was reviewed Continue aspirin and IV heparin Continue metoprolol Continue Lipitor Continue the sliding scale coverage and the patient would likely lead long- acting insulin at a later stage Obviously, her medication noncompliance or medical poor compliance may be an issue even if surgery is performed in this patient We'll continue to follow and will make further recommendations based on her progress
--- NOTE | 2019-07-30 11:56 | P.PN ---
Subjective Progress Note Date: 07/30/19 Principal diagnosis: Multivessel coronary artery disease, non-ST elevated myocardial infarction this admission. This is a 54-year-old female patient who does not follow with a primary care physician on a regular basis. She reports that she has not seen a primary care physician in over 30 years. Patient denies any past medical history. She presented to the emergency department yesterday at [facility] with complaints of severe chest pain which radiated across her back and down both of her arms to her elbows. She describes the pain as a heartburn type pain which had been present for about 2-3 weeks. She has been taking antacids without any relief. Her and daughters encouraged her to seek medical attention as the pain wasn't getting any better. She denies any complaints of fever, chills, nausea, vomiting, shortness of breath, presyncope, syncope or palpitations associated with the pain. A 12-lead EKG was completed which showed Q wave pattern with mild STT changes in her inferior leads which were suggestive of a possible subacute myocardial infarction. Her lab results at [facility] showed a WBC count 13.1, hemoglobin 17.0, hematocrit 48.9, elevated blood glucose of 531, AST 37 and a troponin of 16.0. Subsequently, the patient was transferred here to [facility] for further evaluation and treatment recommendations. She was seen by Dr. Jack from [facility] and a cardiac catheterization was performed which demonstrated a 60% stenosis to her left main coronary artery, and 80-90% stenosis to her diagonal branch of her left anterior descending coronary artery, a chronically occluded right coronary artery and collaterals to her distal right coronary artery from her circumflex coronary artery. For further evaluation a 2-D echocardiogram was completed which showed her to have an overall left ventricular systolic function to be mild to moderately impaired with an ejection fraction between 40 and 45%, mild mitral valve regurgitation, mild tricuspid valve regurgitation and trace to mild pulmonic valve regurgitation. Due to the patient's presenting symptoms, elevated troponins, and heart catheterization results Dr. Dru Kelly from cardiothoracic surgery was consulted for further evaluation and recommendations on myocardial revascularization surgery. POD #2 left heart catheterization with selective coronary angiography performed by Dr. Jack. The patient was seen in follow-up at her bedside in the intensive care unit on 07/30/2019. She is sitting up to the bedside chair and is in no acute distress. She is awake, alert and oriented 3, is hemodynamically stable and is on no inotropic or pressor support. She denies any further complaints of chest pain in the last 24 hours and denies any complaints of shortness of breath. Oxygen saturation are 98% on room air. Bedside telemetry showing normal sinus rhythm heart rate 88. A carotid duplex study was completed yesterday as part of her preoperative workup for myocardial revascularization surgery which showed a 50- 69% stenosis of the proximal right internal carotid artery. Labs this morning show a WBC trending down and is currently 13.1, hemoglobin 13.8, hematocrit 41.2, platelets 224, sodium 134, potassium 3.7, CO2 19, BUN 13, creatinine 0.40, blood glucose 214, AST 258, ALT 117, alkaline phosphate 144 and her troponin is trending down at 16.700. IV fluids are running at 75 mL an hour of 0.9% normal saline and a heparin drip is infusing per protocol. A bedside 5 m walk test was completed with the patient and she was quite unsteady with ambulation bumping into the wall. Objective - Vital Signs Vital signs: Vital Signs Temp 99.3 F 07/30/19 08:00 Pulse 88 07/30/19 08:00 Resp 20 07/30/19 08:00 BP 144/83 07/30/19 08:00 Pulse Ox 98 07/30/19 08:00 Intake & Output 07/29/19 07/30/19 07/30/19 18:59 06:59 18:59 Intake Total 900 985.342 75 Output Total 0 0 Balance 900 985.342 75 Weight 71 kg Intake: IV 825 900 75 Sodium Chloride 0.9% 1, 825 900 75 000 ml @ 75 mls/hr IV . [id number] [facility] Rx#:[id number] Intake, IV Titration 75 85.342 Amount Heparin Sod,Pork in 0.45% 85.342 NaCl 25,000 unit In 0.45 % NaCl 1 250ml.bag @ 12 UNITS/KG/HR 8.52 mls/hr IV .Q24H [facility] Rx#: [id number] Sodium Chloride 0.9% 1, 75 000 ml @ 75 mls/hr IV . [id number] [facility] Rx#:[id number] Output: Urine 0 0 Other: # Voids 1 1 1 - Exam This is a pleasant 54-year-old female patient who is sitting up to the bedside chair in the intensive care unit. She is in no acute distress, remains hemodynamically stable and is currently on no inotropic or pressor support. Oxygen saturations are 98% on room air. - Constitutional General appearance: Present: average body habitus, cooperative, no acute distress - EENT Eyes: Present: PERRLA, poor dentition, normal appearance. Absent: scleral icterus ENT: Present: hearing grossly normal. Absent: thrush - Neck Details: Neck is supple, no JVD. Neck: Absent: lymphadenopathy Carotids: right: bruit present - Respiratory Details: Lung sounds are essentially clear throughout. Respirations are symmetrical and nonlabored. No wheezes, rhonchi or crackles present. Oxygen saturation 98% on room air. - Cardiovascular Details: Regular rhythm and rate. S1 and S2 present, negative for S3, gallop or murmur. No edema present. - Gastrointestinal Gastrointestinal Comment(s): Abdomen is soft, nontender and nondistended. Active bowel sounds present in all 4 abdominal quadrants. No guarding or rigidity. No organomegaly appreciated. - Integumentary Integumentary Comment(s): Skin is warm and dry. No clubbing or cyanosis is present. No rash or abnormal pigmentation is present. - Neurologic Neurologic: Present: CNII-XII intact - Musculoskeletal Musculoskeletal: Present: gait normal, strength equal bilaterally - Psychiatric Psychiatric Comment(s): Flat affect. Psychiatric: Present: A&O x's 3, intact judgment & insight - Allied health notes Allied health notes reviewed: nursing - Labs CBC & Chem 7: 07/30/19 02:34 07/30/19 02:34 Labs: Abnormal Lab Results - Last 24 Hours (Table) 07/29/19 07/29/19 07/29/19 Range/Units 05:14 12:51 16:09 WBC (3.8-10.6) k/uL Neutrophils # (1.3-7.7) k/uL APTT (22.0-30.0) sec Sodium (137-145) mmol/L Carbon Dioxide (22-30) mmol/L Creatinine (0.52-1.04) mg/dL Glucose (74-99) mg/dL POC Glucose (mg/dL) 237 H 281 H (75-99) mg/dL Hemoglobin A1c 13.3 H (4.0-6.0) % AST (14-36) U/L ALT (4-34) U/L Alkaline Phosphatase (38-126) U/L Troponin I (0.000-0.034) ng/mL Total Protein (6.3-8.2) g/dL 07/29/19 07/29/19 07/30/19 Range/Units 18:34 20:13 02:34 WBC 13.1 H (3.8-10.6) k/uL Neutrophils # 7.9 H (1.3-7.7) k/uL APTT 38.1 H (22.0-30.0) sec Sodium (137-145) mmol/L Carbon Dioxide (22-30) mmol/L Creatinine (0.52-1.04) mg/dL Glucose (74-99) mg/dL POC Glucose (mg/dL) 193 H (75-99) mg/dL Hemoglobin A1c (4.0-6.0) % AST (14-36) U/L ALT (4-34) U/L Alkaline Phosphatase (38-126) U/L Troponin I (0.000-0.034) ng/mL Total Protein (6.3-8.2) g/dL 07/30/19 07/30/19 07/30/19 Range/Units 02:34 02:34 02:34 WBC (3.8-10.6) k/uL Neutrophils # (1.3-7.7) k/uL APTT 56.0 H (22.0-30.0) sec Sodium 134 L (137-145) mmol/L Carbon Dioxide 19 L (22-30) mmol/L Creatinine 0.40 L (0.52-1.04) mg/dL Glucose 214 H (74-99) mg/dL POC Glucose (mg/dL) (75-99) mg/dL Hemoglobin A1c (4.0-6.0) % AST 258 H (14-36) U/L ALT 117 H (4-34) U/L Alkaline Phosphatase 144 H (38-126) U/L Troponin I 16.700 H* (0.000-0.034) ng/mL Total Protein 6.2 L (6.3-8.2) g/dL 07/30/19 Range/Units 07:02 WBC (3.8-10.6) k/uL Neutrophils # (1.3-7.7) k/uL APTT (22.0-30.0) sec Sodium (137-145) mmol/L Carbon Dioxide (22-30) mmol/L Creatinine (0.52-1.04) mg/dL Glucose (74-99) mg/dL POC Glucose (mg/dL) 237 H (75-99) mg/dL Hemoglobin A1c (4.0-6.0) % AST (14-36) U/L ALT (4-34) U/L Alkaline Phosphatase (38-126) U/L Troponin I (0.000-0.034) ng/mL Total Protein (6.3-8.2) g/dL Microbiology - Last 24 Hours (Table) 07/29/19 09:58 Nasal Screen MRSA/MSSA - Preliminary Nasopharyngeal Swab - Imaging and Cardiology Chest x-ray: report reviewed, image reviewed Assessment and Plan Assessment: 1. Symptomatic multivessel coronary artery disease with left main disease, she will tentatively be scheduled for myocardial revascularization surgery on , 08/03/2019. 2. Acute non-ST elevated myocardial infarction this admission 3. Hypertension 4. Dyslipidemia 5. Newly diagnosed diabetes mellitus, admission glucose of 531, hemoglobin A1c is 13.3 6. Chronic ongoing tobacco abuse 7. Elevated transaminase, AST is 258 and ALT is 117 8. Mild leukocytosis 9. Right internal carotid artery stenosis of 50-69% Plan: 1. Continue to optimize with medical management, aspirin, statin, beta ed, blood sugar control and heparin drip. 2. Continue to obtain preoperative testing, preoperative teaching reinforced. FEV1 result pending. 3. The patient is tentatively scheduled for myocardial revascularization surgery on , 08/03/2019 with ECHEVARRIA/left radial artery endoscopic harvest and endoscopic vein harvest, to be performed by Dr. Dru Kelly. 4. Encourage use of her incentive spirometry 10 times every hour while awake. 5. The importance of smoking cessation was discussed with the patient. 6. A 5 m walk test was completed this morning, time 1: 3.95 seconds, Time 2: 3. 41 seconds, Time 3: 4.50 seconds. 7. STS risk score will be calculated once the preoperative testing has all been obtained. 8. Continue to monitor for fevers, and daily labs. 9. Medical management/diabetic management per primary care service recommendations. 10. We will order a computed tomography scan of her brain without contrast due to her unsteady gait pattern and consulted Dr. Segura from neurology for preoperative clearance. 11. The patient will be placed on a insulin drip preoperatively for tight glucose control. 12. More recommendations to follow based on patient's clinical course. Time with Patient: Greater than 30
[2019-07-30] MEDS ORDERED: INSULIN REGULAR 100 UNIT in SODIUM CHLORIDE 0.9% 100 ML IV SCH (12:00)
[2019-07-30 12:07] LABS: Glucose,Whole Blood 197 mg/dL (75-99)
[2019-07-30] MEDS: HEPARIN SOD,PORK IN 0.45% NACL 25,000 UNIT in 0.45% NACL 1 250ML.BAG IV SCH (12:37)
[2019-07-30] MEDS: SODIUM CHLORIDE 0.9% 1,000 ML IV SCH (12:38)
[2019-07-30] MEDS ORDERED: RX INFO: IV CONTRAST WAS GIVEN 1 EACH MISC MISCELLANE PRN (13:38)
--- NOTE | 2019-07-30 13:40 | CT ---
EXAMINATION TYPE: CT brain wo con DATE OF EXAM: 07/30/2019 COMPARISON: There is an area of decreased attenuation HISTORY: Unsteady gait, dysfunction CT DLP: 995.8 mGycm Automated exposure control for dose reduction was used. FINDINGS: There is a focal area of decreased attenuation in the parietal lobe on the right. This measures 3.1 x 4.4 x 1.6 cm. Somewhat irregular in its outline. Central structures are midline. There is no evidence hydrocephalus. There is no midline shift or intr acranial blood. Visualized portions of the paranasal sinuses and mastoids are clear. IMPRESSION: ABNORMAL AREA OF LUCENCY IN THE RIGHT PARIETAL REGION MAY REPRESENT AN INFARCT. UNDERLYING PATHOLOGY SUCH A METASTASIS OF BRAIN TUMOR IS NOT EXCLUDED. A POSTCONTRAST SCAN IS SUGGESTED. THIS REPORT WAS PHONED TO LJ IN THE ICU AT THE TIME OF REPORTING.
[2019-07-30 13:53] LABS: Glucose,Whole Blood 217 mg/dL (75-99)
--- NOTE | 2019-07-30 14:29 | PN ---
PROGRESS NOTE Mrs. Coto is a 54-year-old female who was admitted to [facility] with chest pain and evidence of myocardial infarction. The patient had a cardiac catheterization and was found to have triple-vessel disease including left main. The patient is waiting to have bypass surgery. The patient does not complain of any chest pain or shortness of breath. The patient appears to be slightly imbalanced and inattentive. The patient had a CT scan of the brain, which showed a focal area of decreased attenuation in the parietal lobe on the right, which may represent an infarct. Underlying pathology such as metastatic brain tumor is not excluded. A post- contrast scan is suggested. Otherwise patient is clinically stable. Vital signs showed a blood pressure of about 140/86, pulse is about 67, afebrile, respirations of 15. LAB VALUES: [place] [address]. Electrolytes are within normal limits. The AST and ALT are elevated, which seem to be trending high. IMPRESSION: 1. Status post acute myocardial infarction. 2. Triple-vessel disease. 3. Abnormal liver enzymes, which seem to be getting worse. 4. Imbalance. CT scan showing some lucency in the parietal lobe which may be further evaluated. PLAN: We will continue to monitor liver enzymes studies. May hold atorvastatin at this time until further evaluation. Continue rest of the medications. Prognosis guarded. MMODL / IJN: [id number] /
--- NOTE | 2019-07-30 14:50 | CT ---
EXAMINATION TYPE: CT brain w con DATE OF EXAM: 07/30/2019 COMPARISON: Today HISTORY: Follow up for previous abnormal CT CT DLP: 1098.4 mGycm Automated exposure control for dose reduction was used. CONTRAST: Performed with IV Contrast, patient injected with 100 ml mL of Isovue 300. There is irregular 4 cm area of cerebral edema right posterior parietal lobe castro and white matter. T here is a similar 12 mm area of edema in the cortex right frontal lobe. There is 9 mm area of edema i n the white matter right posterior parietal lobe. There is irregular 2.5 cm area of edema in the medi al right occipital lobe. There is 1.6 cm area of hypodensity right posterior frontal lobe white matte r. There is no mass effect. There is no pathologic enhancement. The calvarium is intact. Cerebellum is intact. There is no evidence of posterior fossa mass. Temporal bones appear normal. IMPRESSION: Multiple foci of cerebral edema in the right cerebral hemisphere as above. No enhancing focus seen to suggest metastatic disease. These findings could relate to multiple acute or subacute ischemic infar cts.
[2019-07-30 14:59] LABS: Glucose,Whole Blood 182 mg/dL (75-99)
[2019-07-30 16:00] LABS: Glucose,Whole Blood 165 mg/dL (75-99)
[2019-07-30 17:12] LABS: Glucose,Whole Blood 118 mg/dL (75-99)
[2019-07-30 18:05] LABS: Glucose,Whole Blood 124 mg/dL (75-99)
[2019-07-30 19:07] LABS: Glucose,Whole Blood 124 mg/dL (75-99)
[2019-07-30 19:57] LABS: Glucose,Whole Blood 102 mg/dL (75-99)
[2019-07-30 20:55] LABS: Glucose,Whole Blood 97 mg/dL (75-99)
[2019-07-30] MEDS ORDERED: INSULIN DETEMIR (LEVEMIR) 100 UNIT/ML SYR SQ SCH (21:00)
--- NOTE | 2019-07-30 21:28 | P.CONS ---
History of Present Illness - History of Present Illness This is a pleasant 54 years old female with no significant past medical history. Patient is admitted on 07/27 where she was transferred from the [facility], initially patient presented with chest pain for 10-14 days. Thora-Klex heartburn and found to have elevated troponin, and patient was transferred to [facility]. Patient is with subacute AK Patient underwent cardiac cath and found to have triple-vessel disease, with 60% stenosis to her left main coronary artery, and 80-90% stenosis to her diagonal branch of her left anterior descending coronary artery, a chronically occluded right coronary artery with collaterals. Ejection fraction 40-45% Patient To the ICU on nitro drip Cardiovascular team has been consulted for possible CABG surgery with Dr. Kelly Currently patient remains on heparin drip and insulin drip for better sugar controlled, as well as baby aspirin. However patient was noticed to be bumping into stuff when she walks (patient states this is not new problem for her) also she has difficulty localizing subject in front of her for example her fan, stroke was suspected which was showed on CT of the brain. Which was done today showing abnormal area of lucency in the right parietal region may represent an infarct, by metastasis is not exclude. CTA of the brain showed multiple foci of cerebral edema in the right cerebral hemisphere. No enhancing focus seen to suggest metastatic disease, these findings could relate to multiple acute or subacute ischemic infarct However patient is fully awake and oriented, she denies blurred vision or slurred speech, no weakness or numbness in extremities. No headaches. She is hemodynamically stable Labs reviewed showing Leukocytosis 13.1 K, sodium 134, creatinine 0.4, glucose controlled, liver enzymes slightly elevated with AST 258 and ALT 117 , TSH within normal limits. Troponin is elevated on admission of 16.7. TSH 6.1 and free T4 1 0.3. Hemoglobin A1c is 13.3%. UA is not suggestive of infection. Current over a still detected. Hepatitis panel was negative Chest x-ray: COPD. Carotid Doppler showing 50-69% stenosis of the proximal right ICA MRI/A of the head and neck is ordered and pending Past Medical History Past Medical History: No Reported History Additional Past Medical History / Comment(s): The patient seems to be essentially noncompliant. She has not seen a physician for around 30 years. She counseled above-mentioned comorbidities. History of Any Multi-Drug Resistant Organisms: None Reported Past Surgical History: No Surgical Hx Reported Past Anesthesia/Blood Transfusion Reactions: No Reported Reaction Past Psychological History: No Psychological Hx Reported Smoking Status: Current every day smoker Medications and Allergies Home Medications Medication Instructions Recorded Confirmed Type No Known Home Medications 07/28/19 07/28/19 History Allergies Allergy/AdvReac Type Severity Reaction Status Date / Time acetaminophen [From Tylenol] AdvReac Confusion Verified 07/30/19 08:05 Physical Exam Vitals: Vital Signs Temp Pulse Resp BP Pulse Ox 07/30/19 12:00 98.9 F 67 15 142/86 07/30/19 11:00 72 19 121/64 94 L 07/30/19 10:00 76 19 130/75 94 L 07/30/19 09:00 76 22 146/84 95 07/30/19 08:00 99.3 F 88 20 144/83 98 07/30/19 07:00 87 16 140/80 96 07/30/19 06:00 80 15 147/87 95 07/30/19 05:00 78 15 137/84 95 07/30/19 04:00 99.5 F 76 14 134/73 95 07/30/19 03:00 76 14 138/77 95 07/30/19 02:00 78 16 136/76 94 L 07/30/19 01:00 73 16 130/93 96 07/30/19 00:00 99.0 F 75 16 136/80 96 07/29/19 23:00 79 14 140/89 96 07/29/19 22:00 80 14 108/70 97 07/29/19 21:00 80 15 106/77 98 07/29/19 20:00 98.9 F 93 14 123/83 99 07/29/19 19:00 80 19 116/82 92 L 07/29/19 18:00 85 23 122/78 94 L 07/29/19 17:00 79 19 134/73 98 07/29/19 16:00 99.8 F H 75 13 81/54 96 07/29/19 15:00 74 14 115/72 98 Intake and Output 07/29/19 07/30/19 07/30/19 22:59 06:59 14:59 Intake Total 685.342 600 534.868 Output Total 0 0 Balance 685.342 600 534.868 Intake: IV 600 600 375 Sodium Chloride 0.9% 1, 600 600 375 000 ml @ 75 mls/hr IV . [id number] [facility] Rx#:[id number] Intake, IV Titration 85.342 159.868 Amount Heparin Sod,Pork in 0.45% 85.342 159.868 NaCl 25,000 unit In 0.45 % NaCl 1 250ml.bag @ 12 UNITS/KG/HR 8.52 mls/hr IV .Q24H [facility] Rx#: [id number] Output: Urine 0 0 Other: Voiding Method Toilet # Voids 1 1 1 Weight 71 kg Results CBC & Chem 7: 07/30/19 02:34 07/30/19 02:34 Labs: Abnormal Lab Results - Last 24 Hours (Table) 07/29/19 07/29/19 07/29/19 Range/Units 05:14 16:09 18:34 WBC (3.8-10.6) k/uL Neutrophils # (1.3-7.7) k/uL APTT 38.1 H (22.0-30.0) sec Sodium (137-145) mmol/L Carbon Dioxide (22-30) mmol/L Creatinine (0.52-1.04) mg/dL Glucose (74-99) mg/dL POC Glucose (mg/dL) 281 H (75-99) mg/dL Hemoglobin A1c 13.3 H (4.0-6.0) % AST (14-36) U/L ALT (4-34) U/L Alkaline Phosphatase (38-126) U/L Troponin I (0.000-0.034) ng/mL Total Protein (6.3-8.2) g/dL 07/29/19 07/30/19 07/30/19 Range/Units 20:13 02:34 02:34 WBC 13.1 H (3.8-10.6) k/uL Neutrophils # 7.9 H (1.3-7.7) k/uL APTT (22.0-30.0) sec Sodium 134 L (137-145) mmol/L Carbon Dioxide 19 L (22-30) mmol/L Creatinine 0.40 L (0.52-1.04) mg/dL Glucose 214 H (74-99) mg/dL POC Glucose (mg/dL) 193 H (75-99) mg/dL Hemoglobin A1c (4.0-6.0) % AST 258 H (14-36) U/L ALT 117 H (4-34) U/L Alkaline Phosphatase 144 H (38-126) U/L Troponin I (0.000-0.034) ng/mL Total Protein 6.2 L (6.3-8.2) g/dL 07/30/19 07/30/19 07/30/19 Range/Units 02:34 02:34 07:02 WBC (3.8-10.6) k/uL Neutrophils # (1.3-7.7) k/uL APTT 56.0 H (22.0-30.0) sec Sodium (137-145) mmol/L Carbon Dioxide (22-30) mmol/L Creatinine (0.52-1.04) mg/dL Glucose (74-99) mg/dL POC Glucose (mg/dL) 237 H (75-99) mg/dL Hemoglobin A1c (4.0-6.0) % AST (14-36) U/L ALT (4-34) U/L Alkaline Phosphatase (38-126) U/L Troponin I 16.700 H* (0.000-0.034) ng/mL Total Protein (6.3-8.2) g/dL 07/30/19 07/30/19 Range/Units 12:05 13:51 WBC (3.8-10.6) k/uL Neutrophils # (1.3-7.7) k/uL APTT (22.0-30.0) sec Sodium (137-145) mmol/L Carbon Dioxide (22-30) mmol/L Creatinine (0.52-1.04) mg/dL Glucose (74-99) mg/dL POC Glucose (mg/dL) 197 H 217 H (75-99) mg/dL Hemoglobin A1c (4.0-6.0) % AST (14-36) U/L ALT (4-34) U/L Alkaline Phosphatase (38-126) U/L Troponin I (0.000-0.034) ng/mL Total Protein (6.3-8.2) g/dL Microbiology - Last 24 Hours (Table) 07/29/19 09:58 Nasal Screen MRSA/MSSA - Preliminary Nasopharyngeal Swab Assessment and Plan Assessment: Subacute mild cardiac infarction Ischemic cardiomyopathy with ejection fraction 40-45%. multiple foci of cerebral edema in the right cerebral hemisphere. could relate to multiple acute or subacute ischemic infarct 50-69% stenosis of the proximal right ICA Diabetes mellitus with hyperglycemia Hypertension Noncompliance Nicotine dependence Dyslipidemia Plan: This is a pleasant 54 years old female who presents with subacute AK and possible right stroke. Continue with aspirin, heparin drip, continue with insulin for better control of sugar. Continue with hydration. Continue with aspirin. MRI/A of the brain and neck. Patient is followed closely by several consultants including pulmonary/critical care team, beauty specialist. Cardiothoracic surgery team evaluated the patient for possible CABG. Neurology consult Labs and medication were reviewed.. Continue same treatment. Continue with symptomatic treatment. Resume home medication. Monitor lytes and vitals. DVT and GI prophylaxis. Further recommendations of the clinical course of the patient DVT prophylaxis: heparin GI Prophylaxis: Ppi Prognosis is guarded Thank you for consulting us, we will follow up
[2019-07-30] MEDS: ASPIRIN 81 MG PO SCH (21:29)
[2019-07-30 22:06] LABS: Glucose,Whole Blood 111 mg/dL (75-99)
[2019-07-30 23:12] LABS: Glucose,Whole Blood 135 mg/dL (75-99)
[2019-07-31 00:01] LABS: Glucose,Whole Blood 135 mg/dL (75-99)
[2019-07-31 01:03] LABS: Glucose,Whole Blood 137 mg/dL (75-99)
[2019-07-31] MEDS: CALCIUM CARBONATE 500 MG CHEWABLE PO PRN (01:17)
[2019-07-31 02:12] LABS: Glucose,Whole Blood 127 mg/dL (75-99)
[2019-07-31 03:23] LABS: Glucose,Whole Blood 108 mg/dL (75-99)
[2019-07-31 04:00] LABS: Glucose,Whole Blood 95 mg/dL (75-99)
[2019-07-31] MEDS: SODIUM CHLORIDE 0.9% 1,000 ML IV SCH ×2 (04:04→17:21)
[2019-07-31 04:52] LABS: Basophils % (A) 0 %; Eosinophils # (A) 0.2 k/uL (0-0.7); Eosinophils % (A) 2 %; HCT 39.5 % (34.0-46.0); HGB 13.3 gm/dL (11.4-16.0); Lymphocytes # (A) 4.1 k/uL (1.0-4.8); Lymphocytes % (A) 32 %; MCH 31.1 pg (25.0-35.0); MCHC 33.7 g/dL (31.0-37.0); MCV 92.1 fL (80.0-100.0); Mean Platelet Volume 9.5; Monocytes # (A) 0.8 k/uL (0-1.0); Monocytes % (A) 6 %; Neutrophils # (A) 7.4 k/uL (1.3-7.7); Neutrophils % (A) 58 %; Platelet Count 193 k/uL (150-450); RBC 4.28 m/uL (3.80-5.40); RDW 12.9 % (11.5-15.5); WBC 12.8 k/uL (3.8-10.6)
[2019-07-31 04:57] LABS: Glucose,Whole Blood 110 mg/dL (75-99)
[2019-07-31 06:01] LABS: ALT 140 U/L (4-34); AST 143 U/L (14-36); African American GFR (CKD) >90 (>60 ml/min/1.73 sqM); Alkaline Phosphatase 124 U/L (38-126); Anion Gap 7 mmol/L; Blood Urea Nitrogen 13 mg/dL (7-17); Calcium 8.4 mg/dL (8.4-10.2); Carbon Dioxide 20 mmol/L (22-30); Chloride 108 mmol/L (98-107); Glucose 101 mg/dL (74-99); Non-African American GFR(CKD) >90 (>60 ml/min/1.73 sqM); Potassium 3.3 mmol/L (3.5-5.1); Sodium 135 mmol/L (137-145); Total Bilirubin 0.5 mg/dL (0.2-1.3); Total Protein 5.4 g/dL (6.3-8.2)
[2019-07-31 06:11] LABS: Glucose,Whole Blood 120 mg/dL (75-99)
[2019-07-31 06:59] LABS: Glucose,Whole Blood 125 mg/dL (75-99)
[2019-07-31] MEDS: METOPROLOL TARTRATE 50 MG TAB PO SCH ×2 (07:55→21:06)
[2019-07-31] MEDS: PANTOPRAZOLE 40 MG/10 ML VIAL IVP SCH (07:55)
[2019-07-31] MEDS: MUPIROCIN 2% OINT 22 GM TUBE NASAL SCH ×2 (07:55→21:07)
[2019-07-31] MEDS: HEPARIN SOD,PORK IN 0.45% NACL 25,000 UNIT in 0.45% NACL 1 250ML.BAG IV SCH (08:17)
[2019-07-31 08:23] LABS: Glucose,Whole Blood 151 mg/dL (75-99)
[2019-07-31 09:21] LABS: Glucose,Whole Blood 136 mg/dL (75-99)
[2019-07-31] MEDS ORDERED: NITROGLYCERIN-D5W PMX 50 MG in DEXTROSE/WATER 1 250ML.BAG IV SCH (09:30)
[2019-07-31 09:59] LABS: Glucose,Whole Blood 127 mg/dL (75-99)
--- NOTE | 2019-07-31 10:03 | P.PN ---
Subjective Progress Note Date: 07/31/19 Principal diagnosis: Multivessel coronary artery disease, non-ST elevated myocardial infarction this admission. This is a 54-year-old female patient who does not follow with a primary care physician on a regular basis. She reports that she has not seen a primary care physician in over 30 years. Patient denies any past medical history. She presented to the emergency department yesterday at [facility] with complaints of severe chest pain which radiated across her back and down both of her arms to her elbows. She describes the pain as a heartburn type pain which had been present for about 2-3 weeks. She has been taking antacids without any relief. Her and daughters encouraged her to seek medical attention as the pain wasn't getting any better. She denies any complaints of fever, chills, nausea, vomiting, shortness of breath, presyncope, syncope or palpitations associated with the pain. A 12-lead EKG was completed which showed Q wave pattern with mild STT changes in her inferior leads which were suggestive of a possible subacute myocardial infarction. Her lab results at [facility] showed a WBC count 13.1, hemoglobin 17.0, hematocrit 48.9, elevated blood glucose of 531, AST 37 and a troponin of 16.0. Subsequently, the patient was transferred here to [facility] for further evaluation and treatment recommendations. She was seen by Dr. Jack from [facility] and a cardiac catheterization was performed which demonstrated a 60% stenosis to her left main coronary artery, and 80-90% stenosis to her diagonal branch of her left anterior descending coronary artery, a chronically occluded right coronary artery and collaterals to her distal right coronary artery from her circumflex coronary artery. For further evaluation a 2-D echocardiogram was completed which showed her to have an overall left ventricular systolic function to be mild to moderately impaired with an ejection fraction between 40 and 45%, mild mitral valve regurgitation, mild tricuspid valve regurgitation and trace to mild pulmonic valve regurgitation. Due to the patient's presenting symptoms, elevated troponins, and heart catheterization results Dr. Dru Kelly from cardiothoracic surgery was consulted for further evaluation and recommendations on myocardial revascularization surgery. POD #3 left heart catheterization with selective coronary angiography performed by Dr. Jack. The patient was seen at her bedside in the intensive care unit in follow-up on 07/31/2019. She is resting comfortably in bed and is in no acute distress. She is alert, oriented 3 and remains hemodynamically stable. Denies any further complaints of chest pain or pressure and denies any complaints of shortness of breath. Yesterday while doing her 5 m walk test the patient had some unsteady gait and had some issues with depth perception. The patient seems somewhat off and not making eye contact when communicating with her and she was looking in the opposite direction. Subsequently, a computed tomography scan of her brain was completed with and without contrast which demonstrated multiple foci of cerebral edema in the right cerebral hemisphere, no enhancing focus seen to suggest metastatic disease, and findings which could relate to multiple acute or subacute ischemic infarcts. Due to these findings neurology was consulted. She remains on a heparin drip per protocol, as 0.9% normal saline infusing at 75 mL per hour and is on low-dose aspirin 81 mg by mouth daily at bedtime. Due to the findings on the computed tomography scan of her brain her myocardial revascularization surgery has been put on hold for now until we have further recommendations from neurology. At this time the patient would be considered high risk for myocardial revascularization surgery. The patient also had a bedside FEV1 comple yesterday which showed a 47% of predicted, consistent with moderately restrictive disease related to her poor effort. Laboratory results today show a WBC count 12.8, hemoglobin 13.3, hematocrit 39.5, platelets 193, sodium 135, potassium 3.3, CO2 20, BUN 13, creatinine 0.35, AST trending down 143, and ALT 140. Her blood sugars are much better controlled today on the insulin drip ranging from 95-136 mg/dL. Objective - Vital Signs Vital signs: Vital Signs Temp 98.6 F 07/31/19 04:00 Pulse 74 07/31/19 09:00 Resp 14 07/31/19 09:00 BP 154/118 07/31/19 09:00 Pulse Ox 93 L 07/31/19 09:00 Intake & Output 07/30/19 07/31/19 07/31/19 18:59 06:59 18:59 Intake Total 1081.179 830.404 441.100 Output Total 0 0 0 Balance 1081.179 830.404 441.100 Weight 71 kg 83.1 kg Intake: IV 900 825 225 Sodium Chloride 0.9% 1, 900 825 225 000 ml @ 75 mls/hr IV . [id number] [facility] Rx#:[id number] Intake, IV Titration 181.179 5.404 216.100 Amount Heparin Sod,Pork in 0.45% 159.868 195.487 NaCl 25,000 unit In 0.45 % NaCl 1 250ml.bag @ 12 UNITS/KG/HR 8.52 mls/hr IV .Q24H [facility] Rx#: [id number] Insulin Regular 100 unit 21.311 5.404 20.613 In Sodium Chloride 0.9% 100 ml @ Per Protocol IV .Q0M IVRGEN Rx#:[id number] Output: Urine 0 0 0 Other: Voiding Method Toilet Toilet Toilet # Voids 1 1 1 - Exam This is a pleasant 54-year-old female patient who is sitting up in bed in the intensive care unit. She is in no acute distress, remains hemodynamically stable and is currently on no inotropic or pressor support. Oxygen saturations are 94% on room air. - Constitutional General appearance: Present: average body habitus, cooperative, no acute distress - EENT Eyes: Present: PERRLA, poor dentition, normal appearance. Absent: scleral icterus ENT: Present: hearing grossly normal. Absent: thrush - Neck Details: Neck is supple, no lymphadenopathy. No JVD. - Respiratory Details: Lung sounds are essentially clear throughout. No wheezes, rhonchi or crackles. Respirations are symmetrical and nonlabored. - Cardiovascular Details: Regular rhythm and rate. S1 and S2 present, negative for S3, gallop or murmur. Bedside telemetry showing normal sinus rhythm heart rate 74. No edema present. - Gastrointestinal Gastrointestinal Comment(s): Abdomen is soft, nontender nondistended. Active bowel sounds present all 4 abdominal quadrants. No guarding or rigidity. No organomegaly appreciated. - Integumentary Integumentary Comment(s): Skin is warm and dry. No clubbing or cyanosis is present. - Neurologic Neurologic Comment(s): No focal deficits. Neurologic: Present: CNII-XII intact - Musculoskeletal Musculoskeletal Comment(s): Unsteady gait with ambulation. Musculoskeletal: Present: generalized weakness, strength equal bilaterally - Psychiatric Psychiatric Comment(s): Flat affect, looks away when communicating. Psychiatric: Present: A&O x's 3, intact judgment & insight - Allied health notes Allied health notes reviewed: nursing - Labs CBC & Chem 7: 07/31/19 04:23 07/31/19 04:23 Labs: Abnormal Lab Results - Last 24 Hours (Table) 07/30/19 07/30/19 07/30/19 Range/Units 12:05 13:51 14:58 WBC (3.8-10.6) k/uL APTT (22.0-30.0) sec Sodium (137-145) mmol/L Potassium (3.5-5.1) mmol/L Chloride (98-107) mmol/L Carbon Dioxide (22-30) mmol/L Creatinine (0.52-1.04) mg/dL Glucose (74-99) mg/dL POC Glucose (mg/dL) 197 H 217 H 182 H (75-99) mg/dL AST (14-36) U/L ALT (4-34) U/L Total Protein (6.3-8.2) g/dL Albumin (3.5-5.0) g/dL 07/30/19 07/30/19 07/30/19 Range/Units 15:59 17:11 18:04 WBC (3.8-10.6) k/uL APTT (22.0-30.0) sec Sodium (137-145) mmol/L Potassium (3.5-5.1) mmol/L Chloride (98-107) mmol/L Carbon Dioxide (22-30) mmol/L Creatinine (0.52-1.04) mg/dL Glucose (74-99) mg/dL POC Glucose (mg/dL) 165 H 118 H 124 H (75-99) mg/dL AST (14-36) U/L ALT (4-34) U/L Total Protein (6.3-8.2) g/dL Albumin (3.5-5.0) g/dL 07/30/19 07/30/19 07/30/19 Range/Units 19:05 19:56 22:05 WBC (3.8-10.6) k/uL APTT (22.0-30.0) sec Sodium (137-145) mmol/L Potassium (3.5-5.1) mmol/L Chloride (98-107) mmol/L Carbon Dioxide (22-30) mmol/L Creatinine (0.52-1.04) mg/dL Glucose (74-99) mg/dL POC Glucose (mg/dL) 124 H 102 H 111 H (75-99) mg/dL AST (14-36) U/L ALT (4-34) U/L Total Protein (6.3-8.2) g/dL Albumin (3.5-5.0) g/dL 07/30/19 07/31/19 07/31/19 Range/Units 23:11 00:00 01:01 WBC (3.8-10.6) k/uL APTT (22.0-30.0) sec Sodium (137-145) mmol/L Potassium (3.5-5.1) mmol/L Chloride (98-107) mmol/L Carbon Dioxide (22-30) mmol/L Creatinine (0.52-1.04) mg/dL Glucose (74-99) mg/dL POC Glucose (mg/dL) 135 H 135 H 137 H (75-99) mg/dL AST (14-36) U/L ALT (4-34) U/L Total Protein (6.3-8.2) g/dL Albumin (3.5-5.0) g/dL 07/31/19 07/31/19 07/31/19 Range/Units 02:11 03:21 04:23 WBC (3.8-10.6) k/uL APTT 56.9 H (22.0-30.0) sec Sodium (137-145) mmol/L Potassium (3.5-5.1) mmol/L Chloride (98-107) mmol/L Carbon Dioxide (22-30) mmol/L Creatinine (0.52-1.04) mg/dL Glucose (74-99) mg/dL POC Glucose (mg/dL) 127 H 108 H (75-99) mg/dL AST (14-36) U/L ALT (4-34) U/L Total Protein (6.3-8.2) g/dL Albumin (3.5-5.0) g/dL 07/31/19 07/31/19 07/31/19 Range/Units 04:23 04:23 04:55 WBC 12.8 H (3.8-10.6) k/uL APTT (22.0-30.0) sec Sodium 135 L (137-145) mmol/L Potassium 3.3 L (3.5-5.1) mmol/L Chloride 108 H (98-107) mmol/L Carbon Dioxide 20 L (22-30) mmol/L Creatinine 0.35 L (0.52-1.04) mg/dL Glucose 101 H (74-99) mg/dL POC Glucose (mg/dL) 110 H (75-99) mg/dL AST 143 H (14-36) U/L ALT 140 H (4-34) U/L Total Protein 5.4 L (6.3-8.2) g/dL Albumin 3.0 L (3.5-5.0) g/dL 07/31/19 07/31/19 07/31/19 Range/Units 06:09 06:57 08:22 WBC (3.8-10.6) k/uL APTT (22.0-30.0) sec Sodium (137-145) mmol/L Potassium (3.5-5.1) mmol/L Chloride (98-107) mmol/L Carbon Dioxide (22-30) mmol/L Creatinine (0.52-1.04) mg/dL Glucose (74-99) mg/dL POC Glucose (mg/dL) 120 H 125 H 151 H (75-99) mg/dL AST (14-36) U/L ALT (4-34) U/L Total Protein (6.3-8.2) g/dL Albumin (3.5-5.0) g/dL 07/31/19 Range/Units 09:20 WBC (3.8-10.6) k/uL APTT (22.0-30.0) sec Sodium (137-145) mmol/L Potassium (3.5-5.1) mmol/L Chloride (98-107) mmol/L Carbon Dioxide (22-30) mmol/L Creatinine (0.52-1.04) mg/dL Glucose (74-99) mg/dL POC Glucose (mg/dL) 136 H (75-99) mg/dL AST (14-36) U/L ALT (4-34) U/L Total Protein (6.3-8.2) g/dL Albumin (3.5-5.0) g/dL Microbiology - Last 24 Hours (Table) 07/29/19 09:58 Nasal Screen MRSA/MSSA - Final Nasopharyngeal Swab - Imaging and Cardiology CT Scan - head: report reviewed Assessment and Plan Assessment: 1. Symptomatic multivessel coronary artery disease with left main disease, she will tentatively be scheduled for myocardial revascularization surgery on , 08/03/2019. 2. Acute non-ST elevated myocardial infarction this admission 3. Hypertension 4. Dyslipidemia 5. Newly diagnosed diabetes mellitus, admission glucose of 531, hemoglobin A1c is 13.3 6. Chronic ongoing tobacco abuse 7. Elevated transaminase, AST is 258 and ALT is 117 8. Mild leukocytosis 9. Right internal carotid artery stenosis of 50-69% 10. Gait dysfunction 11. Acute or subacute ischemic cerebral infarct, per the computed tomography scan of the brain with contrast Plan: 1. Continue to optimize with medical management, aspirin, statin, beta ed, blood sugar control and heparin drip. 2. The patient's myocardial revascularization surgery will be placed on hold due to the findings on the computed tomography scan of her brain. She would be considered high risk surgical candidate at this time. 3. Encourage use of her incentive spirometry 10 times every hour while awake. 4. The importance of smoking cessation was discussed with the patient. 5. Neurology consult and recommendations are pending. 6. Medical management/diabetic management per primary care service recommendations. 7. More recommendations to follow based on patient's clinical course. Time with Patient: Less than 30
--- NOTE | 2019-07-31 11:29 | MR ---
EXAMINATION TYPE: MR brain wo/w con DATE OF EXAM: 07/31/2019 11:21 AM COMPARISON: NONE HISTORY: Unsteady gait, dysfunction, abn CT FINDINGS: The ventricles, basal cisterns and sulci overlying the cerebral convexities are mildly enlarged. There is evidence of mild periventricular white matter ischemic demyelination. Diffusion weighted imaging demonstrates acute areas of edema involving the right high parietal occipi vannessa lobe, the right frontal lobe, the right posterior parietal lobe as well as the head of the right caudate nucleus. There are also small foci within the right cerebellum in addition to the left fronta l lobe. I suspect acute vascular insult from embolic process. Appropriate cardiovascular workup advis ed. There is no evidence for midline shift or mass effect. Acute intracranial hemorrhage or extra-axial collection is not evident. The paranasal sinuses and mastoid air cells are well-aerated. IMPRESSION: Diffusion weighted imaging demonstrates acute areas of edema involving the right high parietal occipi vannessa lobe, the right frontal lobe, the right posterior parietal lobe as well as the head of the right caudate nucleus. There are also small foci within the right cerebellum in addition to the left fronta l lobe. I suspect acute vascular insult from embolic process. Appropriate cardiovascular workup advis ed.
[2019-07-31] MEDS: POTASSIUM CHLORIDE ER 20 MEQ TAB.ER PO SCH ×2 (11:30→12:34)
--- NOTE | 2019-07-31 11:38 | MR ---
EXAMINATION TYPE: MR angio head wo/neck wo/w con DATE OF EXAM: 07/31/2019 COMPARISON: CT 07/30/2019, MR brain 07/31/2019 HISTORY: Unsteady gait, dysfunction, abn CT TECHNIQUE: Time of flight images focusing on the [place] were performed without contrast.. 2-D and 3-D postprocessing imaging is performed. FINDINGS: The left and right common carotid arteries are patent. Internal and external carotid arteri es are patent. No evidence stenosis of the proximal internal carotid arteries by NASCET criteria. The re is irregular signal along the carotid siphon on the right than left likely due to atheromatous chavo nge with an apparent stenosis. There is no evident dissection, embolus, or aneurysm. Motion is presen t on the exam which could limit evaluation for small aneurysm however. Left vertebral artery is domin ant. IMPRESSION: Irregular signal present along the carotid siphon on the right may be due to cerebral vas cular disease with an the apparent stenosis, contrast-enhanced MRA or digital subtraction angiography may be of benefit of the right internal carotid artery. Motion may limit the exam.
[2019-07-31] MEDS ORDERED: INSULIN DETEMIR (LEVEMIR) 100 UNIT/ML SYR SQ ONE (12:00)
[2019-07-31 12:03] LABS: Glucose,Whole Blood 119 mg/dL (75-99)
[2019-07-31] MEDS: INSULIN ASPART (NovoLOG) 100 UNIT/ML VIAL SQ SCH ×3 (12:47→21:06)
--- NOTE | 2019-07-31 13:02 | PN ---
PROGRESS NOTE Nasra is a 54-year-old lady who is admitted to hospital with acute myocardial infarction. Underwent cardiac catheterization that revealed severe three-vessel coronary artery disease with left main disease and the patient is awaiting bypass surgery. She developed neurological symptoms and the CT scan showed focal areas of diminished attenuation. The patient is awaiting further neurological workup at this time. This morning, she tells me that she is free of symptoms. On exam, heart rate is 74 beats per minute and blood pressure is 150/74, respiratory rate is 18. Chest exam reveals diminished air entry at the bases. Heart exam reveals first and second heart sounds. No gallop. Abdomen is soft. Exam of the extremities did not reveal any edema. Peripheral pulses are palpable. Patient had an echocardiogram on this admission that revealed iocr-lb-gxewcevy LV dysfunction with apical hypokinesis. ASSESSMENT: 1. Three vessel coronary artery disease, awaiting bypass surgery. 2. Abnormal CT scan with neurological symptoms, patient is awaiting neurological evaluation. PLAN: Will continue with the medical therapy including aspirin, heparin and Lopressor. Patient is not on statins at this time given the elevated liver enzymes. MMODL / IJN: [id number] /
--- NOTE | 2019-07-31 15:04 | P.PN ---
Subjective Progress Note Date: 07/31/19 Principal diagnosis: Acute non-ST elevation myocardial infarction On today's evaluation of 07/30/2019, the patient has no specific complaints she is resting comfortably in bed. She remains on IV heparin. She is free of any angina. She is awaiting cardiac bypass surgery that will be done on Wednesday which is 2 days from now. No chest pain. She is a chronic smoker. Her FEV1 is order of 47% of predicted consistent with moderately restrictive disease related to her poor effort. Her exhalation was less than 6 seconds and this is a suboptimal spirometry which is noted with reflection of an underlying lung capacity. She gave a very poor effort on these spirometry is. The patient was also noted to be somewhat steady her gait. I think she needs to be investigated further with a CAT scan of the brain as part of her workup or preop workup for cardiac surgery. No other new complaints otherwise for now. She looks a bit indifferent about her health. Her STS score and is to be also calculated. Patient was evaluated today on 07/31/19, patient is resting in bed, denies any specific complaints, patient is asymptomatic. Denies any chest pain, however her MRI showed acute areas of edema involving the right parietal occipital lobe and right frontal lobe as well as the right posterior parietal lobe. This is all suggestive of acute vascular insult from embolic process. Patient denies any headache, denies any blurred vision, according to the nurse taking care of the patient she was noted to be unsteady on her feet earlier. But the patient otherwise is asymptomatic. And she is yet to be seen by neurology on consultation. Her bypass surgery is presently on hold. Her labs were reviewed, electrolytes are relatively normal except for slightly low potassium. Patient remains on heparin with a PTT of 56.9. CBC is relatively normal. Objective - Vital Signs Vital signs: Vital Signs Temp 98.1 F 07/31/19 12:00 Pulse 70 07/31/19 14:00 Resp 14 07/31/19 14:00 BP 148/84 07/31/19 14:00 Pulse Ox 99 07/31/19 14:00 Intake & Output 07/30/19 07/31/19 07/31/19 18:59 06:59 18:59 Intake Total 1081.179 830.404 817.514 Output Total 0 0 0 Balance 1081.179 830.404 817.514 Weight 71 kg 83.1 kg Intake: IV 900 825 600 Sodium Chloride 0.9% 1, 900 825 600 000 ml @ 75 mls/hr IV . [id number] [facility] Rx#:[id number] Intake, IV Titration 181.179 5.404 217.514 Amount Heparin Sod,Pork in 0.45% 159.868 195.487 NaCl 25,000 unit In 0.45 % NaCl 1 250ml.bag @ 12 UNITS/KG/HR 8.52 mls/hr IV .Q24H [facility] Rx#: [id number] Insulin Regular 100 unit 21.311 5.404 22.027 In Sodium Chloride 0.9% 100 ml @ Per Protocol IV .Q0M [facility] Rx#:[id number] Output: Urine 0 0 0 Other: Voiding Method Toilet Toilet Toilet # Voids 1 1 1 # Bowel Movements 1 - Exam Physical Exam: Revealed 54-year-old female in no distress. On room air, O2 saturations 96%. Head: Atraumatic, normocephalic. HEENT:[Neck is supple.] [No neck masses.] [No thyromegaly.] [No JVD.] Chest: [Clear throughout, no crackles, no rhonchi, no wheezes.] Cardiac Exam: [Normal S1 and S2, no S3 gallop, no murmur.] Abdomen: [Soft, nontender, no megaly, no rebound, no guarding, normal bowel sounds.] Extremities: [No clubbing, no edema, no cyanosis.] Neurological Exam: [No focal neurologic deficit.] No gross focal neurologic deficit is noted. Psychiatric: Normal mood, affect and normal mental status examination. Skin: No rashes. - Labs CBC & Chem 7: 07/31/19 04:23 07/31/19 04:23 Labs: Abnormal Lab Results - Last 24 Hours (Table) 07/30/19 07/30/19 07/30/19 Range/Units 14:58 15:59 17:11 WBC (3.8-10.6) k/uL APTT (22.0-30.0) sec Sodium (137-145) mmol/L Potassium (3.5-5.1) mmol/L Chloride (98-107) mmol/L Carbon Dioxide (22-30) mmol/L Creatinine (0.52-1.04) mg/dL Glucose (74-99) mg/dL POC Glucose (mg/dL) 182 H 165 H 118 H (75-99) mg/dL AST (14-36) U/L ALT (4-34) U/L Total Protein (6.3-8.2) g/dL Albumin (3.5-5.0) g/dL 07/30/19 07/30/19 07/30/19 Range/Units 18:04 19:05 19:56 WBC (3.8-10.6) k/uL APTT (22.0-30.0) sec Sodium (137-145) mmol/L Potassium (3.5-5.1) mmol/L Chloride (98-107) mmol/L Carbon Dioxide (22-30) mmol/L Creatinine (0.52-1.04) mg/dL Glucose (74-99) mg/dL POC Glucose (mg/dL) 124 H 124 H 102 H (75-99) mg/dL AST (14-36) U/L ALT (4-34) U/L Total Protein (6.3-8.2) g/dL Albumin (3.5-5.0) g/dL 07/30/19 07/30/19 07/31/19 Range/Units 22:05 23:11 00:00 WBC (3.8-10.6) k/uL APTT (22.0-30.0) sec Sodium (137-145) mmol/L Potassium (3.5-5.1) mmol/L Chloride (98-107) mmol/L Carbon Dioxide (22-30) mmol/L Creatinine (0.52-1.04) mg/dL Glucose (74-99) mg/dL POC Glucose (mg/dL) 111 H 135 H 135 H (75-99) mg/dL AST (14-36) U/L ALT (4-34) U/L Total Protein (6.3-8.2) g/dL Albumin (3.5-5.0) g/dL 07/31/19 07/31/19 07/31/19 Range/Units 01:01 02:11 03:21 WBC (3.8-10.6) k/uL APTT (22.0-30.0) sec Sodium (137-145) mmol/L Potassium (3.5-5.1) mmol/L Chloride (98-107) mmol/L Carbon Dioxide (22-30) mmol/L Creatinine (0.52-1.04) mg/dL Glucose (74-99) mg/dL POC Glucose (mg/dL) 137 H 127 H 108 H (75-99) mg/dL AST (14-36) U/L ALT (4-34) U/L Total Protein (6.3-8.2) g/dL Albumin (3.5-5.0) g/dL 07/31/19 07/31/19 07/31/19 Range/Units 04:23 04:23 04:23 WBC 12.8 H (3.8-10.6) k/uL APTT 56.9 H (22.0-30.0) sec Sodium 135 L (137-145) mmol/L Potassium 3.3 L (3.5-5.1) mmol/L Chloride 108 H (98-107) mmol/L Carbon Dioxide 20 L (22-30) mmol/L Creatinine 0.35 L (0.52-1.04) mg/dL Glucose 101 H (74-99) mg/dL POC Glucose (mg/dL) (75-99) mg/dL AST 143 H (14-36) U/L ALT 140 H (4-34) U/L Total Protein 5.4 L (6.3-8.2) g/dL Albumin 3.0 L (3.5-5.0) g/dL 07/31/19 07/31/19 07/31/19 Range/Units 04:55 06:09 06:57 WBC (3.8-10.6) k/uL APTT (22.0-30.0) sec Sodium (137-145) mmol/L Potassium (3.5-5.1) mmol/L Chloride (98-107) mmol/L Carbon Dioxide (22-30) mmol/L Creatinine (0.52-1.04) mg/dL Glucose (74-99) mg/dL POC Glucose (mg/dL) 110 H 120 H 125 H (75-99) mg/dL AST (14-36) U/L ALT (4-34) U/L Total Protein (6.3-8.2) g/dL Albumin (3.5-5.0) g/dL 07/31/19 07/31/19 07/31/19 Range/Units 08:22 09:20 09:57 WBC (3.8-10.6) k/uL APTT (22.0-30.0) sec Sodium (137-145) mmol/L Potassium (3.5-5.1) mmol/L Chloride (98-107) mmol/L Carbon Dioxide (22-30) mmol/L Creatinine (0.52-1.04) mg/dL Glucose (74-99) mg/dL POC Glucose (mg/dL) 151 H 136 H 127 H (75-99) mg/dL AST (14-36) U/L ALT (4-34) U/L Total Protein (6.3-8.2) g/dL Albumin (3.5-5.0) g/dL 07/31/19 Range/Units 12:02 WBC (3.8-10.6) k/uL APTT (22.0-30.0) sec Sodium (137-145) mmol/L Potassium (3.5-5.1) mmol/L Chloride (98-107) mmol/L Carbon Dioxide (22-30) mmol/L Creatinine (0.52-1.04) mg/dL Glucose (74-99) mg/dL POC Glucose (mg/dL) 119 H (75-99) mg/dL AST (14-36) U/L ALT (4-34) U/L Total Protein (6.3-8.2) g/dL Albumin (3.5-5.0) g/dL Microbiology - Last 24 Hours (Table) 07/29/19 09:58 Nasal Screen MRSA/MSSA - Final Nasopharyngeal Swab Assessment and Plan Assessment: Impression: Acute non-ST segment elevation myocardial infarction Multivessel coronary artery disease as noted on cardiac catheterization. Acute CVA/embolic event as noted on MRI of the brain. 2 diabetes. Benign essential hypertension. Dyslipidemia. Right carotid artery disease in the range of 50-69%. Recommendation: Continue present supportive care measures. Bypass surgery is presently on hold. Patient is to be seen by neurology for further input. Continue heparin and aspirin. Continue metoprolol. Continue sliding scale coverage. We will continue to monitor in the ICU for now. Prognosis is definitely guarded considering the [employer] findings. And abnormal MRI of Time with Patient: Less than 30
[2019-07-31 16:30] LABS: Glucose,Whole Blood 179 mg/dL (75-99)
--- NOTE | 2019-07-31 17:39 | P.CNNES ---
History of Present Illness Consult date: 07/31/19 Reason for Consult: Acute stroke Chief complaint: Acute stroke History of Present Illness: This is a new neurology consult requested for further advice and recommendations for a 54-year-old female who was admitted for initially a non-STEMI and as being prepared to go for possible CABG she began have difficulty with gait and balance. She was found to have an abnormal computed tomography scan of the head that showed evidence of a 4 cm infarct involving the right parietal occipital lobe. This is now been further confirmed on MRI for showing resulting vascular territory infarcts most likely cardioembolic. The patient also underwent a MRA of the head which shows evidence of stenosis along the carotid siphon on. The patient reports that she has had long-standing balance issues. She was never aware that she had diabetes or high cholesterol. She has been a smoker for 40 years. She does not drink or use illicit drugs. 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 On this consult today I discussed this case with cardiothoracic surgeon. This patient's very complex due to the severe degree of atherosclerotic disease and possible need for more complex stenting. Review of Systems A 10 point review of systems was obtained with positive pertinent negatives related to the history of present illness. The patient does report she has had ongoing issues with balance for many years. She attempts this to just being clumsy and relates that her daughter is also very uncoordinated in her gait The patient also reports that she is never been evaluated for sleep apnea but does poor sleep continuity Past Medical History Past Medical History: No Reported History Additional Past Medical History / Comment(s): The patient seems to be essentially noncompliant. She has not seen a physician for around 30 years. She counseled above-mentioned comorbidities. History of Any Multi-Drug Resistant Organisms: None Reported Past Surgical History: No Surgical Hx Reported Past Anesthesia/Blood Transfusion Reactions: No Reported Reaction Past Psychological History: No Psychological Hx Reported Smoking Status: Current every day smoker Medications and Allergies Home Medications Medication Instructions Recorded Confirmed Type No Known Home Medications 07/28/19 07/28/19 History Allergies Allergy/AdvReac Type Severity Reaction Status Date / Time acetaminophen [From Tylenol] AdvReac Confusion Verified 07/30/19 08:05 Physical Examination - Vital Signs Vital Signs: Vital Signs Temp Pulse Resp BP Pulse Ox 07/31/19 16:00 73 16 147/86 95 07/31/19 15:00 74 23 153/90 96 07/31/19 14:00 70 14 148/84 99 07/31/19 13:00 81 11 L 131/76 98 07/31/19 12:00 98.1 F 66 14 143/77 98 07/31/19 10:00 68 16 161/72 95 07/31/19 09:00 74 14 154/118 93 L 07/31/19 08:00 86 12 150/74 94 L 07/31/19 07:00 81 16 158/86 94 L 07/31/19 06:00 73 17 146/84 93 L 07/31/19 05:00 84 20 142/77 97 07/31/19 04:00 98.6 F 71 19 149/93 96 07/31/19 03:00 75 20 152/88 97 07/31/19 02:00 75 12 146/83 97 07/31/19 01:00 76 14 153/82 95 07/31/19 00:00 99.1 F 80 10 L 140/77 94 L 07/30/19 23:00 74 19 158/128 95 07/30/19 22:00 80 10 L 153/84 96 07/30/19 21:00 99.0 F 86 18 154/86 07/30/19 20:00 80 15 150/92 07/30/19 19:00 83 16 168/95 94 L 07/30/19 18:00 78 15 144/88 92 L Intake and Output 07/31/19 07/31/19 07/31/19 06:59 14:59 22:59 Intake Total 600 817.514 150 Output Total 0 0 Balance 600 817.514 150 Intake: IV 600 600 150 Sodium Chloride 0.9% 1, 600 600 150 000 ml @ 75 mls/hr IV . [id number] [facility] Rx#:[id number] Intake, IV Titration 0 217.514 Amount Heparin Sod,Pork in 0.45% 195.487 NaCl 25,000 unit In 0.45 % NaCl 1 250ml.bag @ 12 UNITS/KG/HR 8.52 mls/hr IV .Q24H [facility] Rx#: [id number] Insulin Regular 100 unit 0 22.027 In Sodium Chloride 0.9% 100 ml @ Per Protocol IV .Q0M [facility] Rx#:[id number] Output: Urine 0 0 Other: Voiding Method Toilet Toilet Toilet # Voids 1 1 1 # Bowel Movements 1 Weight 83.1 kg Gen. physical exam: Patient awake slightly sleep apnea and drowsy but arousable. HEENT: Clear sclera clear oropharynx neck is supple. Bilateral carotid bruits noted. Cardiac: Regular rate and rhythm no murmurs noted. Pulses: Radial pedal pulses are equal and symmetric. Extremities: No edema noted in the hands or feet. Skin: No hypertrophy hypopigmented lesions. No rash petechia or bruising noted. Neurological exam NIH stroke scale 0 Mentation: Alert and able to answer questions properly. No dysarthria noted. Visual [place]: Intact to finger confrontation. Cranial nerve examination: Tracks well no nystagmus noted on vertical horizontal gaze. Face is symmetric. V1 through V3 sensory is intact bilaterally. Cranial nerve VIII is intact by clinical observation. Palate elevates symmetrically. Shoulder shrug symmetric. Tongue is midline without fasciculation or deviation. Next Motor examination moves all 4 extremities equally. Pronator drift negative. Strength is 5 out of 5 throughout. No tremors or fasciculations noted. Deep tendon reflexes are trace over biceps brachial radialis. Patellar reflexes are +1 bilaterally. Ankle jerks are trace bilaterally. Plantar responses are withdrawal bilaterally. Sensory: Intact to light touch and pinprick sensation. Coordination testing: Intact to finger to nose testing with eyes open and eyes closed. He'll yost maneuver is intact. Gait examination patient is able to stand without assistance. Her gait is slightly wide-based but not ataxic. Results - Laboratory Findings CBC and BMP: 07/31/19 04:23 07/31/19 04:23 Abnormal Lab Findings: Abnormal Labs 07/28/19 07/28/19 07/29/19 23:22 23:31 01:38 WBC Neutrophils # APTT Sodium Potassium Chloride Carbon Dioxide Creatinine Glucose POC Glucose (mg/dL) Hemoglobin A1c AST ALT Alkaline Phosphatase Troponin I 23.100 H* Total Protein Albumin Triglycerides Cholesterol HDL Cholesterol TSH 6.130 H Ur Specific [place] >1.050 H Urine Protein Trace H Urine Glucose (UA) 4+ H Urine Ketones 3+ H 07/29/19 07/29/19 07/29/19 02:32 04:18 05:14 WBC Neutrophils # APTT Sodium 135 L Potassium Chloride Carbon Dioxide 20 L Creatinine 0.39 L Glucose 272 H POC Glucose (mg/dL) 262 H 292 H Hemoglobin A1c AST 176 H ALT 38 H Alkaline Phosphatase Troponin I Total Protein Albumin Triglycerides 597 H Cholesterol 293 H HDL Cholesterol 34 L TSH Ur Specific [place] Urine Protein Urine Glucose (UA) Urine Ketones 07/29/19 07/29/19 07/29/19 05:14 05:14 05:14 WBC 17.1 H Neutrophils # 13.1 H APTT Sodium Potassium Chloride Carbon Dioxide Creatinine Glucose POC Glucose (mg/dL) Hemoglobin A1c 13.3 H AST ALT Alkaline Phosphatase Troponin I 20.800 H* Total Protein Albumin Triglycerides Cholesterol HDL Cholesterol TSH Ur Specific [place] Urine Protein Urine Glucose (UA) Urine Ketones 07/29/19 07/29/19 07/29/19 07:52 12:51 16:09 WBC Neutrophils # APTT Sodium Potassium Chloride Carbon Dioxide Creatinine Glucose POC Glucose (mg/dL) 234 H 237 H 281 H Hemoglobin A1c AST ALT Alkaline Phosphatase Troponin I Total Protein Albumin Triglycerides Cholesterol HDL Cholesterol TSH Ur Specific [place] Urine Protein Urine Glucose (UA) Urine Ketones 07/29/19 07/29/19 07/30/19 18:34 20:13 02:34 WBC 13.1 H Neutrophils # 7.9 H APTT 38.1 H Sodium Potassium Chloride Carbon Dioxide Creatinine Glucose POC Glucose (mg/dL) 193 H Hemoglobin A1c AST ALT Alkaline Phosphatase Troponin I Total Protein Albumin Triglycerides Cholesterol HDL Cholesterol TSH Ur Specific [place] Urine Protein Urine Glucose (UA) Urine Ketones 07/30/19 07/30/19 07/30/19 02:34 02:34 02:34 WBC Neutrophils # APTT 56.0 H Sodium 134 L Potassium Chloride Carbon Dioxide 19 L Creatinine 0.40 L Glucose 214 H POC Glucose (mg/dL) Hemoglobin A1c AST 258 H ALT 117 H Alkaline Phosphatase 144 H Troponin I 16.700 H* Total Protein 6.2 L Albumin Triglycerides Cholesterol HDL Cholesterol TSH Ur Specific [place] Urine Protein Urine Glucose (UA) Urine Ketones 07/30/19 07/30/19 07/30/19 07:02 12:05 13:51 WBC Neutrophils # APTT Sodium Potassium Chloride Carbon Dioxide Creatinine Glucose POC Glucose (mg/dL) 237 H 197 H 217 H Hemoglobin A1c AST ALT Alkaline Phosphatase Troponin I Total Protein Albumin Triglycerides Cholesterol HDL Cholesterol TSH Ur Specific [place] Urine Protein Urine Glucose (UA) Urine Ketones 07/30/19 07/30/19 07/30/19 14:58 15:59 17:11 WBC Neutrophils # APTT Sodium Potassium Chloride Carbon Dioxide Creatinine Glucose POC Glucose (mg/dL) 182 H 165 H 118 H Hemoglobin A1c AST ALT Alkaline Phosphatase Troponin I Total Protein Albumin Triglycerides Cholesterol HDL Cholesterol TSH Ur Specific [place] Urine Protein Urine Glucose (UA) Urine Ketones 07/30/19 07/30/19 07/30/19 18:04 19:05 19:56 WBC Neutrophils # APTT Sodium Potassium Chloride Carbon Dioxide Creatinine Glucose POC Glucose (mg/dL) 124 H 124 H 102 H Hemoglobin A1c AST ALT Alkaline Phosphatase Troponin I Total Protein Albumin Triglycerides Cholesterol HDL Cholesterol TSH Ur Specific [place] Urine Protein Urine Glucose (UA) Urine Ketones 07/30/19 07/30/19 07/31/19 22:05 23:11 00:00 WBC Neutrophils # APTT Sodium Potassium Chloride Carbon Dioxide Creatinine Glucose POC Glucose (mg/dL) 111 H 135 H 135 H Hemoglobin A1c AST ALT Alkaline Phosphatase Troponin I Total Protein Albumin Triglycerides Cholesterol HDL Cholesterol TSH Ur Specific [place] Urine Protein Urine Glucose (UA) Urine Ketones 07/31/19 07/31/19 07/31/19 01:01 02:11 03:21 WBC Neutrophils # APTT Sodium Potassium Chloride Carbon Dioxide Creatinine Glucose POC Glucose (mg/dL) 137 H 127 H 108 H Hemoglobin A1c AST ALT Alkaline Phosphatase Troponin I Total Protein Albumin Triglycerides Cholesterol HDL Cholesterol TSH Ur Specific [place] Urine Protein Urine Glucose (UA) Urine Ketones 07/31/19 07/31/19 07/31/19 04:23 04:23 04:23 WBC 12.8 H Neutrophils # APTT 56.9 H Sodium 135 L Potassium 3.3 L Chloride 108 H Carbon Dioxide 20 L Creatinine 0.35 L Glucose 101 H POC Glucose (mg/dL) Hemoglobin A1c AST 143 H ALT 140 H Alkaline Phosphatase Troponin I Total Protein 5.4 L Albumin 3.0 L Triglycerides Cholesterol HDL Cholesterol TSH Ur Specific [place] Urine Protein Urine Glucose (UA) Urine Ketones 07/31/19 07/31/19 07/31/19 04:55 06:09 06:57 WBC Neutrophils # APTT Sodium Potassium Chloride Carbon Dioxide Creatinine Glucose POC Glucose (mg/dL) 110 H 120 H 125 H Hemoglobin A1c AST ALT Alkaline Phosphatase Troponin I Total Protein Albumin Triglycerides Cholesterol HDL Cholesterol TSH Ur Specific [place] Urine Protein Urine Glucose (UA) Urine Ketones 07/31/19 07/31/19 07/31/19 08:22 09:20 09:57 WBC Neutrophils # APTT Sodium Potassium Chloride Carbon Dioxide Creatinine Glucose POC Glucose (mg/dL) 151 H 136 H 127 H Hemoglobin A1c AST ALT Alkaline Phosphatase Troponin I Total Protein Albumin Triglycerides Cholesterol HDL Cholesterol TSH Ur Specific [place] Urine Protein Urine Glucose (UA) Urine Ketones 07/31/19 07/31/19 12:02 16:28 WBC Neutrophils # APTT Sodium Potassium Chloride Carbon Dioxide Creatinine Glucose POC Glucose (mg/dL) 119 H 179 H Hemoglobin A1c AST ALT Alkaline Phosphatase Troponin I Total Protein Albumin Triglycerides Cholesterol HDL Cholesterol TSH Ur Specific [place] Urine Protein Urine Glucose (UA) Urine Ketones - Diagnostic Findings EKG: report reviewed Chest x-ray: report reviewed (Computed tomography scan of the head. MRI of the brain and MRA of the head and neck reviewed) Assessment and Plan Assessment: This is a 54-year-old female who presented with 10 days of chest pain and discovered to have triple-vessel disease involving 60% stenosis of her left main coronary artery. 80-90% stenosis of the diagonal branch of the left anterior descending coronary artery and occlusion of the right coronary artery. Ejection fraction estimated be 40-45%. The patient following her cardiac Had acute onset of gait instability. Neuro imagings studies have confirmed this patient has both acute and subacute infarcts Multiple vascular territories consistent with cardio-embolic origin. My concern is that the right parietal-occipital stroke is rather large at 5 cm with edema. The likelihood of oral anticoagulation or heparin even combined with Plavix would increase the risk for hemorrhage. I'm recommending that we hold the heparin for 24 hours and re-image her with computed tomography head scan to assure that there is been no hemorrhagic transformation. We can continue her on small dose 81mg aspirin only for the next 24 hours. In addition a CT angiogram of the head and neck would be helpful to confirm the degree of stenosis described in the MRA. In addition on my exam I noted significant carotid bruits bilaterally. The carotid ultrasound also shows 50 this 69% stenosis of the proximal right ICA and increased flow velocities over the right ECA. A CT angiogram of the neck would be also very helpful to confirm the accurate degree of stenosis involved and location. Despite the neuroimaging studies and catheterization studies, this patient's NIH stroke scale is 0. She is not showing any deficits with sensorimotor vision however this patient's prognosis remains extremely guarded. Due to this patient still being of a young age for this degree of infarct I'm recommending a hypercoagulability workup as well. This patient does have a long-standing history of smoking which certainly could explain the atherosclerotic disease. Her not being aware of diabetes also suggest significant diabetes as an underlying stroke risk factor. Summary: 1. Multiple acute infarcts most likely cardioembolic origin. 2. Triple-vessel disease. 3. Poor ejection fraction 40-45%. 4. Abnormal carotid ultrasound with 50-69% stenosis of proximal right ICA increased flow velocities of the right ECA. Recommendations 1. DC heparin. Reassess in 48 hours before starting anticoagulation. 2. Computed tomography scan of the head in a.m. noncontrast to follow-up edema and possible risk for hemorrhagic conversion. 3. Maintain aspirin 81 mg by mouth. 4. PT OT and speech to continue work with patient daily. 5. CT angiogram of the head and neck in a.m. 6. Continue with statin therapy. 7. Hypercoaguabiity ability workup. 8. Blood pressure management: Maintain systolic blood pressure less than 140 and diastolic blood pressure 80-90. 9. Blood sugar management: Maintain aggressively normal glycemic state. Glucoses over 150 can in large eventual stroke size and increase the risk for brain hemorrhage. However avoid aggressive glucose correction to 80 to 130. 10. Neuro checks every 2 hours while awake per nursing protocol.
--- NOTE | 2019-07-31 20:50 | P.PN ---
Subjective This is a pleasant 54 years old female with no significant past medical history. Patient is admitted on 07/27 where she was transferred from [facility], initially patient presented with chest pain for 10-14 days. [place] like heartburn and found to have elevated troponin, and patient was transferred to [facility]. Patient is with subacute CO Patient underwent cardiac cath and found to have triple-vessel disease, with 60% stenosis to her left main coronary artery, and 80-90% stenosis to her diagonal branch of her left anterior descending coronary artery, a chronically occluded right coronary artery with collaterals. Ejection fraction 40-45% Patient To the ICU on nitro drip Cardiovascular team has been consulted for possible CABG surgery with Dr. Kelly Currently patient remains on heparin drip and insulin drip for better sugar controlled, as well as baby aspirin. However patient was noticed to be bumping into stuff when she walks (patient states this is not new problem for her) also she has difficulty localizing subject in front of her for example her fan, stroke was suspected which was showed on CT of the brain. Which was done today showing abnormal area of lucency in the right parietal region may represent an infarct, by metastasis is not exclude. CTA of the brain showed multiple foci of cerebral edema in the right cerebral hemisphere. No enhancing focus seen to suggest metastatic disease, these findings could relate to multiple acute or subacute ischemic infarct However patient is fully awake and oriented, she denies blurred vision or slurred speech, no weakness or numbness in extremities. No headaches. She is hemodynamically stable Labs reviewed showing Leukocytosis 13.1 K, sodium 134, creatinine 0.4, glucose controlled, liver enzymes slightly elevated with AST 258 and ALT 117 , TSH w ithin normal limits. Troponin is elevated on admission of 16.7. TSH 6.1 and free T4 1 0.3. Hemoglobin A1c is 13.3%. UA is not suggestive of infection. Current over a still detected. Hepatitis panel was negative Chest x-ray: COPD. Carotid Doppler showing 50-69% stenosis of the proximal right ICA MRI/A of the head and neck is ordered and pending 07/28/2019 Patient is seen today as follow-up in the ICU, she was sitting at the couch in the room without specific complaints she denies chest pain. No neurological complaints, no headache, no weakness or numbness, no blurred vision, no slurred speech no dizziness, no nausea vomiting or abdominal wound. Patient earlier found to have triple-vessel disease and cardiovascular surgery is been consulted for surgical intervention is on hold due to her neuro deficits. There was concern regarding gait instability and MRI of the brain showing MRI of the prominent showing 5.4 cm parieto-occipital infarct with multiple small infarcts in the right hemisphere, suspicious for embolic phenomena from vascular origin. Because of his neurological team were concern for hemorrhagic transformation so heparin drip was stopped and patient On aspirin only. Repeat CT of the brain is recommended tomorrow to ensure no hemorrhagic transformation, also CTA to assess vascular stenosis. Carotid Doppler showing 50-69% stenosis of the proximal right ICA Hypercoagulable workup is initiated by neuro team. Patient currently on neuro check: With blood pressure and sugar better controlled. Lap showing WBCs 12.8, sodium 135, potassium 3.3 and creatinine 0.3 Insulin drip was stopped and started Levemir 15 units plus sliding scale. Also she is on metoprolol 50 mg twice daily Prognosis remains guarded Review of systems CONSTITUTIONAL: No fever, no malaise, no fatigue. HEENT: No recent visual problems or hearing problems. Denied any sore throat. CARDIOVASCULAR: No orthopnea, PND, no palpitations, no syncope. PULMONARY: No shortness of breath, no cough, no hemoptysis. GASTROINTESTINAL: No diarrhea, no nausea, no vomiting, no abdominal pain. Normoactive bowel sounds. NEUROLOGICAL: No headaches, no weakness, no numbness. HEMATOLOGICAL: Denies any bleeding or petechiae. MUSCULOSKELETAL/RHEUMATOLOGICAL: Denies any joint pain, swelling, or any muscle pain. Active Medications Generic Name Dose Route Start Last Admin Trade Name Cosmeq PRN Reason Stop Dose Admin Aspirin 81 mg 07/28/19 21:00 07/30/19 21:29 Aspirin PO 81 mg HS [facility]IRGEN Administration Calcium Carbonate/Glycine 500 mg 07/31/19 01:15 07/31/19 01:17 Tums PO 500 mg TID PRN Administration Heartburn Sodium Chloride 1,000 mls @ 75 mls/hr 07/28/19 20:30 07/31/19 17:21 Saline 0.9% IV 75 mls/hr .[id number] VIRGEN Administration Nitroglycerin/Dextrose 50 mg/ 250 mls @ 0 mls/hr 07/31/19 09:30 IV Solution IV .Q0M VIRGEN Protocol Titrate Ibuprofen 200 mg 07/30/19 08:06 07/30/19 08:25 Advil PO 200 mg Q4HR PRN Administration Pain or Fever > 100.5 Insulin Aspart 0 unit 07/31/19 12:30 07/31/19 17:20 Novolog SQ 2 unit ACHS VIRGEN Administration Protocol Insulin Detemir 15 unit 08/01/19 07:00 Levemir SQ DAILY@0700 [facility] Labetalol HCl 10 mg 07/28/19 23:37 Trandate IVP Q4H PRN Blood Pressure - High Metoprolol Tartrate 50 mg 07/28/19 21:00 07/31/19 07:55 Lopressor PO 50 mg BID VIRGEN Administration Miscellaneous Information 1 each 07/30/19 06:19 Potassium Per Protocol MISCELLANE DAILY PRN Per Protocol Protocol Miscellaneous Information 1 each 07/30/19 13:38 Rx Info: Iv Contrast Was Given MISCELLANE 08/01/19 13:38 DAILY PRN Per Protocol Mupirocin 1 applic 07/29/19 09:00 07/31/19 07:55 Bactroban Oint NASAL 08/03/19 09:01 1 applic BID VIRGEN Administration Nitroglycerin 0.4 mg 07/28/19 20:26 07/31/19 09:19 Nitrostat SUBLINGUAL 0.4 mg Q5M PRN Administration Chest Pain Ondansetron HCl 4 mg 07/28/19 23:01 07/28/19 23:30 Zofran IVP 4 mg Q6HR PRN Administration Nausea And Vomiting Pantoprazole Sodium 40 mg 07/31/19 09:00 07/31/19 07:55 Protonix IVP 40 mg DAILY VIRGEN Administration Objective - Vital Signs Vital signs: Vital Signs Temp 98.1 F 07/31/19 12:00 Pulse 77 07/31/19 18:00 Resp 22 07/31/19 18:00 BP 113/82 07/31/19 18:00 Pulse Ox 96 07/31/19 18:00 Intake & Output 07/30/19 07/31/19 07/31/19 18:59 06:59 18:59 Intake Total 1081.179 673.003 7718.514 Output Total 0 0 0 Balance 1081.179 749.983 6296.514 Weight 71 kg 83.1 kg Intake: IV 900 825 900 Sodium Chloride 0.9% 1, 900 825 900 000 ml @ 75 mls/hr IV . [id number] VIRGEN Rx#:[id number] Intake, IV Titration 181.179 5.404 217.514 Amount Heparin Sod,Pork in 0.45% 159.868 195.487 NaCl 25,000 unit In 0.45 % NaCl 1 250ml.bag @ 12 UNITS/KG/HR 8.52 mls/hr IV .Q24H VIRGEN Rx#: [id number] Insulin Regular 100 unit 21.311 5.404 22.027 In Sodium Chloride 0.9% 100 ml @ Per Protocol IV .Q0M VIRGEN Rx#:[id number] Output: Urine 0 0 0 Other: Voiding Method Toilet Toilet Toilet # Voids 1 1 1 # Bowel Movements 1 - Exam GENERAL: The patient is alert and oriented x3, not in any acute distress. Well developed, well nourished. HEENT: Pupils are round and equally reacting to light. EOMI. No scleral icterus. No conjunctival pallor. Normocephalic, atraumatic. No pharyngeal erythema. No thyromegaly. CARDIOVASCULAR: S1 and S2 present. No murmurs, rubs, or gallops. PULMONARY: Chest is clear to auscultation, no wheezing or crackles. ABDOMEN: Soft, nontender, nondistended, normoactive bowel sounds. No palpable organomegaly. MUSCULOSKELETAL: No joint swelling or deformity. EXTREMITIES: No cyanosis, clubbing, or pedal edema. NEUROLOGICAL: Gross neurological examination did not reveal any focal deficits. SKIN: No rashes. no petechiae. - Labs CBC & Chem 7: 07/31/19 04:23 07/31/19 04:23 Labs: Abnormal Lab Results - Last 24 Hours (Table) 07/30/19 07/30/19 07/30/19 Range/Units 19:05 19:56 22:05 WBC (3.8-10.6) k/uL APTT (22.0-30.0) sec Sodium (137-145) mmol/L Potassium (3.5-5.1) mmol/L Chloride (98-107) mmol/L Carbon Dioxide (22-30) mmol/L Creatinine (0.52-1.04) mg/dL Glucose (74-99) mg/dL POC Glucose (mg/dL) 124 H 102 H 111 H (75-99) mg/dL AST (14-36) U/L ALT (4-34) U/L Total Protein (6.3-8.2) g/dL Albumin (3.5-5.0) g/dL 07/30/19 07/31/19 07/31/19 Range/Units 23:11 00:00 01:01 WBC (3.8-10.6) k/uL APTT (22.0-30.0) sec Sodium (137-145) mmol/L Potassium (3.5-5.1) mmol/L Chloride (98-107) mmol/L Carbon Dioxide (22-30) mmol/L Creatinine (0.52-1.04) mg/dL Glucose (74-99) mg/dL POC Glucose (mg/dL) 135 H 135 H 137 H (75-99) mg/dL AST (14-36) U/L ALT (4-34) U/L Total Protein (6.3-8.2) g/dL Albumin (3.5-5.0) g/dL 07/31/19 07/31/19 07/31/19 Range/Units 02:11 03:21 04:23 WBC (3.8-10.6) k/uL APTT 56.9 H (22.0-30.0) sec Sodium (137-145) mmol/L Potassium (3.5-5.1) mmol/L Chloride (98-107) mmol/L Carbon Dioxide (22-30) mmol/L Creatinine (0.52-1.04) mg/dL Glucose (74-99) mg/dL POC Glucose (mg/dL) 127 H 108 H (75-99) mg/dL AST (14-36) U/L ALT (4-34) U/L Total Protein (6.3-8.2) g/dL Albumin (3.5-5.0) g/dL 07/31/19 07/31/19 07/31/19 Range/Units 04:23 04:23 04:55 WBC 12.8 H (3.8-10.6) k/uL APTT (22.0-30.0) sec Sodium 135 L (137-145) mmol/L Potassium 3.3 L (3.5-5.1) mmol/L Chloride 108 H (98-107) mmol/L Carbon Dioxide 20 L (22-30) mmol/L Creatinine 0.35 L (0.52-1.04) mg/dL Glucose 101 H (74-99) mg/dL POC Glucose (mg/dL) 110 H (75-99) mg/dL AST 143 H (14-36) U/L ALT 140 H (4-34) U/L Total Protein 5.4 L (6.3-8.2) g/dL Albumin 3.0 L (3.5-5.0) g/dL 07/31/19 07/31/19 07/31/19 Range/Units 06:09 06:57 08:22 WBC (3.8-10.6) k/uL APTT (22.0-30.0) sec Sodium (137-145) mmol/L Potassium (3.5-5.1) mmol/L Chloride (98-107) mmol/L Carbon Dioxide (22-30) mmol/L Creatinine (0.52-1.04) mg/dL Glucose (74-99) mg/dL POC Glucose (mg/dL) 120 H 125 H 151 H (75-99) mg/dL AST (14-36) U/L ALT (4-34) U/L Total Protein (6.3-8.2) g/dL Albumin (3.5-5.0) g/dL 07/31/19 07/31/19 07/31/19 Range/Units 09:20 09:57 12:02 WBC (3.8-10.6) k/uL APTT (22.0-30.0) sec Sodium (137-145) mmol/L Potassium (3.5-5.1) mmol/L Chloride (98-107) mmol/L Carbon Dioxide (22-30) mmol/L Creatinine (0.52-1.04) mg/dL Glucose (74-99) mg/dL POC Glucose (mg/dL) 136 H 127 H 119 H (75-99) mg/dL AST (14-36) U/L ALT (4-34) U/L Total Protein (6.3-8.2) g/dL Albumin (3.5-5.0) g/dL 07/31/19 Range/Units 16:28 WBC (3.8-10.6) k/uL APTT (22.0-30.0) sec Sodium (137-145) mmol/L Potassium (3.5-5.1) mmol/L Chloride (98-107) mmol/L Carbon Dioxide (22-30) mmol/L Creatinine (0.52-1.04) mg/dL Glucose (74-99) mg/dL POC Glucose (mg/dL) 179 H (75-99) mg/dL AST (14-36) U/L ALT (4-34) U/L Total Protein (6.3-8.2) g/dL Albumin (3.5-5.0) g/dL Microbiology - Last 24 Hours (Table) 07/29/19 09:58 Nasal Screen MRSA/MSSA - Final Nasopharyngeal Swab Assessment and Plan Assessment: -Subacute myocardial infarction, with triple-vessel disease needing bypass s urgery -Ischemic cardiomyopathy with ejection fraction 40-45%. -multiple foci of cerebral edema in the right cerebral hemisphere. With large parieto-occipital infarct about 5.4 cm concerning for hemorrhagic transferred patient, vascular embolic phenomenon is suspected relate to multiple acute or dickerson bacute ischemic infarct -50-69% stenosis of the proximal right ICA -Diabetes mellitus with hyperglycemia -Hypertension -Noncompliance -Nicotine dependence -Dyslipidemia Plan: This is a pleasant 54 years old female who presents with subacute CO and possible right stroke. Vascular embolic source. Continue with aspirin, heparin drip discontinued. Continue with aspirin. Continue with metoprolol continue with hydration. Patient is followed closely by several consultants including pulmonary/critical care, industrial automation engineer, cardiovascular surgery and neurology. Neurological workup like CT of the brain and CT of the head and neck. Neuro check. Hypercoagulable workup Labs and medication were reviewed.. Continue same treatment. Continue with symptomatic treatment. Resume home medication. Monitor lytes and vitals. DVT and GI prophylaxis. Further recommendations of the clinical course of the patient DVT prophylaxis: heparin and hold GI Prophylaxis: Ppi Prognosis is guarded Thank you for consulting us, we will follow up
[2019-07-31 20:54] LABS: Glucose,Whole Blood 234 mg/dL (75-99)
[2019-07-31] MEDS: ASPIRIN 81 MG PO SCH (21:06)
[2019-08-01] MEDS: CALCIUM CARBONATE 500 MG CHEWABLE PO PRN (00:54)
[2019-08-01 04:47] LABS: African American GFR (CKD) >90 (>60 ml/min/1.73 sqM); Anion Gap 6 mmol/L; Blood Urea Nitrogen 8 mg/dL (7-17); Calcium 8.6 mg/dL (8.4-10.2); Carbon Dioxide 22 mmol/L (22-30); Chloride 107 mmol/L (98-107); Glucose 135 mg/dL (74-99); Magnesium 1.7 mg/dL (1.6-2.3); Non-African American GFR(CKD) >90 (>60 ml/min/1.73 sqM); Potassium 3.4 mmol/L (3.5-5.1); Sodium 135 mmol/L (137-145)
[2019-08-01 04:59] LABS: Basophils # (A) 0.1 k/uL (0-0.2); Basophils % (A) 1 %; Eosinophils # (A) 0.3 k/uL (0-0.7); Eosinophils % (A) 3 %; HCT 41.2 % (34.0-46.0); HGB 13.7 gm/dL (11.4-16.0); Lymphocytes # (A) 3.4 k/uL (1.0-4.8); Lymphocytes % (A) 33 %; MCH 30.5 pg (25.0-35.0); MCHC 33.2 g/dL (31.0-37.0); Mean Platelet Volume 8.7; Monocytes # (A) 0.7 k/uL (0-1.0); Monocytes % (A) 7 %; Neutrophils # (A) 5.7 k/uL (1.3-7.7); Neutrophils % (A) 55 %; Platelet Count 236 k/uL (150-450); RBC 4.48 m/uL (3.80-5.40); RDW 13.2 % (11.5-15.5); WBC 10.2 k/uL (3.8-10.6)
[2019-08-01] MEDS: MAGNESIUM SULFATE-D5W PMX 1 GM in DEXTROSE/WATER 1 100ML.BAG IVPB SCH ×2 (05:31→07:50)
[2019-08-01] MEDS: POTASSIUM CHLORIDE ER 20 MEQ TAB.ER PO SCH ×4 (05:31→23:37)
[2019-08-01] MEDS: SODIUM CHLORIDE 0.9% 1,000 ML IV SCH ×2 (05:36→21:44)
[2019-08-01 06:59] LABS: Glucose,Whole Blood 148 mg/dL (75-99)
[2019-08-01] MEDS: INSULIN ASPART (NovoLOG) 100 UNIT/ML VIAL SQ SCH ×4 (07:50→21:40)
[2019-08-01] MEDS: INSULIN DETEMIR (LEVEMIR) 100 UNIT/ML SYR SQ SCH (07:51)
[2019-08-01] MEDS: METOPROLOL TARTRATE 50 MG TAB PO SCH (08:03)
[2019-08-01] MEDS: PANTOPRAZOLE 40 MG/10 ML VIAL IVP SCH (08:04)
[2019-08-01] MEDS ORDERED: FUROSEMIDE 10 MG/ML 2 ML VIAL IV ONE (09:06)
--- NOTE | 2019-08-01 09:26 | CT ---
EXAMINATION TYPE: CT brain wo con DATE OF EXAM: 08/01/2019 COMPARISON: 07/30/2019 INDICATION: Vascular disease DLP: 1043.8 mGycm, Automated exposure control for dose reduction was used. CONTRAST: None CT of the brain is performed utilizing 3 mm thick sections through the posterior fossa and 3 mm thick sections through the remaining calvarium. Study is performed within 24 hours of arrival to the hosp ital. No abnormal hyperdensity is present to suggest an acute intracranial hemorrhage. No mass lesion is evident. No acute infarcts are evident. There appears to be some maturation of a watershed infarct in the righ t parietal-occipital region. No interval hemorrhage or interval increase size is evident. Some persis tent hypodensities in the right frontal region image 23. Slight prominence of the right so in reddy remains present.. Ventricles and sulci are appropriate for the patient age. Paranasal sinuses and mastoid air cells within the [id number] are clear. IMPRESSIONS: 1. Stable subacute infarcts right cerebrum. No new infarcts are evident. 2. Some underlying microvascular ischemic changes likely present.
--- NOTE | 2019-08-01 09:38 | CT ---
EXAMINATION TYPE: CT angio head neck DATE OF EXAM: 08/01/2019 HISTORY: Vascular disease COMPARISON: None CT DLP: 453.6 mGycm. Automated Exposure Control for Dose Reduction was Utilized. TECHNIQUE: CTA scan of the neck is performed with IV Contrast, patient injected with 65 mL of Isovue 370, axial images are obtained, coronal and sagittal reformatted images are reviewed. Three-D recons tructed images are created on an independent workstation and reviewed. Source images are reviewed. FINDINGS: Carotid/Vascular Structures: The left common carotid artery and innominate have a common origin. Athe romatous plaquing appears to be at the left common carotid artery origin. There is some narrowing of the distal right common carotid artery without significant flow-limiting stenosis. There may be some more severe narrowing of the left external carotid artery origin with at least moderate narrowing of the right external carotid artery origin. Vertebral arteries are codominant. Common carotid arteries bifurcate normally into internal and exter nal carotid arteries. Atheromatous plaquing is present without significant flow-limiting stenosis. Ve ssels are patent to the skull base. Cervical of Hooks: Vertebral basilar system appears normal. Posterior cerebral vasculature is unrema rkable. Internal carotid arteries bifurcate normally into A1 and M1 segments. A2 segments are normal. The anterior communicating artery is absent. This may be present on reconstructed images do not moe rly identified due to adjacent bone artifact on source images. Left Posterior communicating artery is patent. Right posterior communicating artery is absent. Small bilateral pleural effusions are noted. IMPRESSION: 1. No flow-limiting stenosis bilateral carotid internal carotid arteries. On narrowing of the externa l carotid arteries is noted however. This is greater on the left than the right. 2. Normal [place] of Hooks
[2019-08-01] MEDS: ATORVASTATIN 80 MG TAB PO SCH (09:41)
[2019-08-01] MEDS: MUPIROCIN 2% OINT 22 GM TUBE NASAL SCH (10:25)
[2019-08-01 12:00] LABS: Glucose,Whole Blood 224 mg/dL (75-99)
--- NOTE | 2019-08-01 13:25 | P.PN ---
Subjective Progress Note Date: 08/01/19 Principal diagnosis: Acute non-ST elevation myocardial infarction On today's evaluation of 07/30/2019, the patient has no specific complaints she is resting comfortably in bed. She remains on IV heparin. She is free of any angina. She is awaiting cardiac bypass surgery that will be done on Wednesday which is 2 days from now. No chest pain. She is a chronic smoker. Her FEV1 is order of 47% of predicted consistent with moderately restrictive disease related to her poor effort. Her exhalation was less than 6 seconds and this is a suboptimal spirometry which is noted with reflection of an underlying lung capacity. She gave a very poor effort on these spirometry is. The patient was also noted to be somewhat steady her gait. I think she needs to be investigated further with a CAT scan of the brain as part of her workup or preop workup for cardiac surgery. No other new complaints otherwise for now. She looks a bit indifferent about her health. Her STS score and is to be also calculated. Patient was evaluated today on 07/31/19, patient is resting in bed, denies any specific complaints, patient is asymptomatic. Denies any chest pain, however her MRI showed acute areas of edema involving the right parietal occipital lobe and right frontal lobe as well as the right posterior parietal lobe. This is all suggestive of acute vascular insult from embolic process. Patient denies any headache, denies any blurred vision, according to the nurse taking care of the patient she was noted to be unsteady on her feet earlier. But the patient otherwise is asymptomatic. And she is yet to be seen by neurology on consultation. Her bypass surgery is presently on hold. Her labs were reviewed, electrolytes are relatively normal except for slightly low potassium. Patient remains on heparin with a PTT of 56.9. CBC is relatively normal. Patient was reevaluated today on 08/01/19, patient remains in the ICU, she is doing surprisingly well. Her presentation was a presentation of non-ST elevation myocardial infarction, and her cardiac catheterization showed signi ficant coronary artery disease. Patient was being considered for myocardial revascularization, however the patient developed acute CVA, most likely cardioembolic in nature. Hence her surgery is presently on hold, stenting is being considered. Objective - Vital Signs Vital signs: Vital Signs Temp 98 F 08/01/19 12:00 Pulse 83 08/01/19 12:00 Resp 23 08/01/19 12:00 BP 115/83 08/01/19 12:00 Pulse Ox 96 08/01/19 12:00 Intake & Output 07/31/19 08/01/19 08/01/19 18:59 06:59 18:59 Intake Total 2445.919 4400 575 Output Total 0 1 400 Balance 8755.644 6343 175 Weight 81.3 kg Intake: IV 975 825 235 Sodium Chloride 0.9% 1, 975 825 235 000 ml @ 10 mls/hr IV . Q24H [facility] Rx#:[id number] Intake, IV Titration 217.514 100 100 Amount Heparin Sod,Pork in 0.45% 195.487 NaCl 25,000 unit In 0.45 % NaCl 1 250ml.bag @ 12 UNITS/KG/HR 8.52 mls/hr IV .Q24H [facility] Rx#: [id number] Insulin Regular 100 unit 22.027 In Sodium Chloride 0.9% 100 ml @ Per Protocol IV .Q0M [facility] Rx#:[id number] Magnesium Sulfate-D5w Pmx 100 100 1 gm In Dextrose/Water 1 100ml.bag @ 100 mls/hr IVPB Q1H [facility] Rx#: [id number] Oral 500 240 Output: Urine 0 1 400 Other: Voiding Method Toilet Toilet Toilet # Voids 1 1 1 # Bowel Movements 1 - Exam Physical Exam: Revealed 54-year-old female in no distress. Remains on room air, Head: Atraumatic, normocephalic. HEENT:[Neck is supple.] [No neck masses.] [No thyromegaly.] [No JVD.] Chest: [Clear throughout, no crackles, no rhonchi, no wheezes.] Cardiac Exam: [Normal S1 and S2, no S3 gallop, no murmur.] Abdomen: [Soft, nontender, no megaly, no rebound, no guarding, normal bowel sounds.] Extremities: [No clubbing, no edema, no cyanosis.] Neurological Exam: [No focal neurologic deficit.] No gross focal neurologic deficit is noted. Psychiatric: Normal mood, affect and normal mental status examination. Skin: No rashes. - Labs CBC & Chem 7: 08/01/19 04:18 08/01/19 04:18 Labs: Abnormal Lab Results - Last 24 Hours (Table) 07/31/19 07/31/19 08/01/19 Range/Units 16:28 20:53 04:18 Sodium (137-145) mmol/L Potassium (3.5-5.1) mmol/L Creatinine (0.52-1.04) mg/dL Glucose (74-99) mg/dL POC Glucose (mg/dL) 179 H 234 H (75-99) mg/dL Homocysteine 2.94 L (4.00-14.00) umol/L 08/01/19 08/01/19 08/01/19 Range/Units 04:18 06:58 11:59 Sodium 135 L (137-145) mmol/L Potassium 3.4 L (3.5-5.1) mmol/L Creatinine 0.34 L (0.52-1.04) mg/dL Glucose 135 H (74-99) mg/dL POC Glucose (mg/dL) 148 H 224 H (75-99) mg/dL Homocysteine (4.00-14.00) umol/L Assessment and Plan Assessment: Impression: Acute non-ST segment elevation myocardial infarction Multivessel coronary artery disease as noted on cardiac catheterization. Acute CVA/embolic event as noted on MRI of the brain. 2 diabetes. Benign essential hypertension. Dyslipidemia. Right carotid artery disease in the range of 50-69%. Recommendation: CT angiogram of the head and neck was recommended by neurology. Continue present supportive care measures. Bypass surgery is presently on hold. Heparin was discontinued based on neurology recommendation. Recommended aspirin 81 mg daily Continue metoprolol. Continue sliding scale coverage. Keep blood sugar between 80 to 1:30. We will continue to monitor in the ICU for now. Time with Patient: Less than 30
--- NOTE | 2019-08-01 15:04 | PN ---
PROGRESS NOTE Nasra Coto is a 54-year-old lady who is admitted to hospital with non ST-segment elevation PR. Underwent cardiac catheterization and needs bypass surgery. She had a stroke on this admission and Surgeon is planning to do surgery 6 weeks from now. At the time of my evaluation this morning, patient is feeling well, free of symptoms on exam. Vital signs are stable. Chest exam reveals good air entry bilaterally. Heart exam reveals first and second heart sounds. No gallop. Exam of extremities did not reveal any edema. LABS: Show a potassium of 3.5, creatinine is 0.6, hemoglobin is 11. The patient is currently aspirin, Lipitor, insulin, Lopressor. ASSESSMENT: 1. Non ST-segment elevation PR. 2. Three vessel coronary artery disease. 3. Cerebrovascular accident. I will start the patient on an AKIRA inhibitor tomorrow. Patient will undergo surgery when she is stable from neurological standpoint. VALENTE / LISAN: [id number] /
--- NOTE | 2019-08-01 15:04 | P.PN ---
Subjective Progress Note Date: 08/01/19 Principal diagnosis: Multivessel coronary artery disease, non-ST elevated myocardial infarction this admission. This is a 54-year-old female patient who does not follow with a primary care physician on a regular basis. She reports that she has not seen a primary care physician in over 30 years. Patient denies any past medical history. She presented to the emergency department yesterday at [facility] with complaints of severe chest pain which radiated across her back and down both of her arms to her elbows. She describes the pain as a heartburn type pain which had been present for about 2-3 weeks. She has been taking antacids without any relief. Her and daughters encouraged her to seek medical attention as the pain wasn't getting any better. She denies any complaints of fever, chills, nausea, vomiting, shortness of breath, presyncope, syncope or palpitations associated with the pain. A 12-lead EKG was completed which showed Q wave pattern with mild STT changes in her inferior leads which were suggestive of a possible subacute myocardial infarction. Her lab results at [facility] showed a WBC count 13.1, hemoglobin 17.0, hematocrit 48.9, elevated blood glucose of 531, AST 37 and a troponin of 16.0. Subsequently, the patient was transferred here to [facility] for further evaluation and treatment recommendations. She was seen by Dr. Jack from [facility] and a cardiac catheterization was performed which demonstrated a 60% stenosis to her left main coronary artery, and 80-90% stenosis to her diagonal branch of her left anterior descending coronary artery, a chronically occluded right coronary artery and collaterals to her distal right coronary artery from her circumflex coronary artery. For further evaluation a 2-D echocardiogram was completed which showed her to have an overall left ventricular systolic function to be mild to moderately impaired with an ejection fraction between 40 and 45%, mild mitral valve regurgitation, mild tricuspid valve regurgitation and trace to mild pulmonic valve regurgitation. Due to the patient's presenting symptoms, elevated troponins, and heart catheterization results Dr. Dru Kelly from cardiothoracic surgery was consulted for further evaluation and recommendations on myocardial revascularization surgery. POD #4 left heart catheterization with selective coronary angiography performed by Dr. Jack. On 08/01/2019 the patient was seen in follow-up at her bedside in the intensive care unit. She is sitting up to the bedside chair and is in no acute distress. She is awake, alert and oriented 3. The patient reports that she feels much improved today, denies any complaints of pain in the last 24 hours and denies any shortness of breath. She is hemodynamically stable and is on no inotropic or pressor support, has been afebrile the last 24 hours, oxygen saturation are 96% on room air and her bedside telemetry showing normal sinus rhythm heart rate 74. She underwent a MRI of her head/neck MRA and MRI of her brain yesterday which demonstrated per the report in irregular signal present along the carotid siphon on the right which may be due to cerebrovascular disease with an apparent stenosis, and acute areas of edema involving the right high parietal occipital lobe, the right frontal lobe, the right posterior parietal lobe as well as the head of the right caudate nucleus. It also demonstrated a small foci within the right cerebellum in addition to the left frontal lobe which is suspected of acute vascular insult from embolic process. Subsequently, due to these findings she was seen by neurology and her heparin drip was discontinued but remains on aspirin 81 mg by mouth daily. Laboratory results today show a WBC count 10.2, hemoglobin 13.7, sodium 135, potassium 3.4, BUN 8, creatinine 0.34, glucose 135 and calcium of 8.6. She is scheduled to undergo a computed tomography scan of her brain today. Objective - Vital Signs Vital signs: Vital Signs Temp 98.3 F 08/01/19 08:00 Pulse 74 08/01/19 09:00 Resp 24 08/01/19 09:00 BP 136/89 08/01/19 09:00 Pulse Ox 96 08/01/19 09:00 Intake & Output 07/31/19 08/01/19 08/01/19 18:59 06:59 18:59 Intake Total 5260.902 5083 565 Output Total 0 1 Balance 4977.973 1317 565 Weight 81.3 kg Intake: IV 975 825 225 Sodium Chloride 0.9% 1, 975 825 225 000 ml @ 75 mls/hr IV . [id number] [facility] Rx#:[id number] Intake, IV Titration 217.514 100 100 Amount Heparin Sod,Pork in 0.45% 195.487 NaCl 25,000 unit In 0.45 % NaCl 1 250ml.bag @ 12 UNITS/KG/HR 8.52 mls/hr IV .Q24H [facility] Rx#: [id number] Insulin Regular 100 unit 22.027 In Sodium Chloride 0.9% 100 ml @ Per Protocol IV .Q0M [facility] Rx#:[id number] Magnesium Sulfate-D5w Pmx 100 100 1 gm In Dextrose/Water 1 100ml.bag @ 100 mls/hr IVPB Q1H [facility] Rx#: [id number] Oral 500 240 Output: Urine 0 1 Other: Voiding Method Toilet Toilet Toilet # Voids 1 1 1 # Bowel Movements 1 - Exam This is a pleasant 54-year-old female patient who is sitting up in bed in the intensive care unit. She is in no acute distress, remains hemodynamically stable and is currently on no inotropic or pressor support. Oxygen saturations are 96% on room air. - Constitutional General appearance: Present: cooperative, no acute distress, obese - EENT Eyes: Present: PERRLA, normal appearance. Absent: scleral icterus ENT: Present: hearing grossly normal, normal oropharynx. Absent: thrush - Neck Details: Neck is supple, no JVD. Neck: Absent: lymphadenopathy Carotids: bilateral: bruit present - Respiratory Details: Lung sounds essentially clear throughout. No wheezes, rhonchi or crackles. Respirations are symmetrical and nonlabored. Oxygen saturation 96% on room air. - Cardiovascular Details: Regular rhythm and rate. S1 and S2 present, negative for S3, gallop or murmur. - Gastrointestinal Gastrointestinal Comment(s): Abdomen is soft, nontender and nondistended. Active bowel sounds present in all 4 abdominal quadrants. No guarding or rigidity. No organomegaly appreciated. Tolerating oral intake. - Integumentary Integumentary Comment(s): Skin is warm and dry. No clubbing or cyanosis is present. Integumentary: Absent: jaundiced, rash - Neurologic Neurologic: Present: CNII-XII intact - Musculoskeletal Musculoskeletal: Present: strength equal bilaterally - Psychiatric Psychiatric Comment(s): Flat affect. Psychiatric: Present: A&O x's 3, intact judgment & insight - Allied health notes Allied health notes reviewed: nursing - Labs CBC & Chem 7: 08/01/19 04:18 08/01/19 04:18 Labs: Abnormal Lab Results - Last 24 Hours (Table) 07/31/19 07/31/19 07/31/19 Range/Units 09:57 12:02 16:28 Sodium (137-145) mmol/L Potassium (3.5-5.1) mmol/L Creatinine (0.52-1.04) mg/dL Glucose (74-99) mg/dL POC Glucose (mg/dL) 127 H 119 H 179 H (75-99) mg/dL 07/31/19 08/01/19 08/01/19 Range/Units 20:53 04:18 06:58 Sodium 135 L (137-145) mmol/L Potassium 3.4 L (3.5-5.1) mmol/L Creatinine 0.34 L (0.52-1.04) mg/dL Glucose 135 H (74-99) mg/dL POC Glucose (mg/dL) 234 H 148 H (75-99) mg/dL Assessment and Plan Assessment: 1. Symptomatic multivessel coronary artery disease with left main disease, she will tentatively be scheduled for myocardial revascularization surgery on , 08/03/2019. 2. Acute non-ST elevated myocardial infarction this admission 3. Multiple acute or subacute ischemic cerebral infarct 4. Hypertension 5. Dyslipidemia 6. Newly diagnosed diabetes mellitus, admission glucose of 531, hemoglobin A1c is 13.3 7. Chronic ongoing tobacco abuse 8. Elevated transaminase, AST is 258 and ALT is 117 9. Mild leukocytosis 10. Right internal carotid artery stenosis of 50-69% 11. Gait dysfunction Plan: 1. Continue to optimize with medical management, aspirin, statin, beta ed, and blood sugar control. 2. The patient's myocardial revascularization surgery will be placed on hold due to the findings of multiple acute/subacute cerebral infarct. She would be considered high risk surgical candidate at this time. 3. Encourage use of her incentive spirometry 10 times every hour while awake. 4. The importance of smoking cessation was discussed with the patient. 5. Neurology consult and recommendations noted and appreciated. 6. Medical management/diabetic management per primary care service recommendations. 7. More recommendations to follow based on patient's clinical course. Time with Patient: Less than 30
[2019-08-01 17:06] LABS: Glucose,Whole Blood 183 mg/dL (75-99)
--- NOTE | 2019-08-01 19:26 | P.PN ---
Subjective Progress Note Date: 08/01/19 Principal diagnosis: ACUTE STROKE, Patient has remained hemodynamically stable overnight. No reports of any altered mental status focal deficits. Patient denies having any headache change in vision or hearing or smell. Objective - Vital Signs Vital signs: Vital Signs Temp 98 F 08/01/19 16:00 Pulse 81 08/01/19 16:00 Resp 21 08/01/19 16:00 BP 156/90 08/01/19 16:00 Pulse Ox 98 08/01/19 16:00 Intake & Output 08/01/19 08/01/19 08/02/19 06:59 18:59 06:59 Intake Total 1425 1135 10 Output Total 1 1050 Balance 1424 85 10 Weight 81.3 kg Intake: IV 825 315 10 Sodium Chloride 0.9% 1, 825 315 10 000 ml @ 10 mls/hr IV . Q24H [facility] Rx#:[id number] Intake, IV Titration 100 100 Amount Magnesium Sulfate-D5w Pmx 100 100 1 gm In Dextrose/Water 1 100ml.bag @ 100 mls/hr IVPB Q1H [facility] Rx#: [id number] Oral 500 720 Output: Urine 1 1050 Other: Voiding Method Toilet Toilet # Voids 1 1 - Exam Patient examined chart revieWED Computed tomography scan of the head reviewed. There is no evidence of any further progression of the infarcts. The edema seems to be stable no evidence of any hemorrhagic conversion. CT angiogram head and neck confirms the extent of vasculopathy involved as known noted on the MRA of the head and neck. Hypercoagulability workup is pending. Homocysteine level is below normal. neurological exam Mental status awake alert oriented 3. Speech fluent. Affect somewhat flat. Pupils: 2 mm equally reactive to light and accommodation. Cranial nerve exam: Extraocular movements are full. There is no nystagmus noted on vertical horizontal gaze. Face appears symmetric. V1 through V3 sensory remains intact. Palate elevates symmetrically. Cranial nerve VIII is intact level observation. Shoulder shrug symmetric. Tongue is midline without fasciculations deviation. Motor examination normal muscle bulk and tone throughout. Pronator drift is negative. Strength is 5 out of 5 throughout. No tremor or fasciculations noted. Deep tendon reflexes +1 over biceps brachial radialis. Patellar reflexes +1 bilaterally. Ankle jerks trace bilaterally. Plantar responses are mute bilaterally Coordination testing intact to finger to nose testing with eyes open and eyes closed. He'll yost maneuver intact. Heel and toe tapping intact. Sensory examination grossly intact light touch. Gait: The patient has been able to ambulate from the bed to the chair into the bathroom without difficulty some assistance is needed. Her gait is slightly wide-based but not ataxic. - Labs CBC & Chem 7: 08/01/19 04:18 08/01/19 04:18 Labs: Abnormal Lab Results - Last 24 Hours (Table) 07/31/19 08/01/19 08/01/19 Range/Units 20:53 04:18 04:18 Sodium 135 L (137-145) mmol/L Potassium 3.4 L (3.5-5.1) mmol/L Creatinine 0.34 L (0.52-1.04) mg/dL Glucose 135 H (74-99) mg/dL POC Glucose (mg/dL) 234 H (75-99) mg/dL Homocysteine 2.94 L (4.00-14.00) umol/L 08/01/19 08/01/19 08/01/19 Range/Units 06:58 11:59 17:05 Sodium (137-145) mmol/L Potassium (3.5-5.1) mmol/L Creatinine (0.52-1.04) mg/dL Glucose (74-99) mg/dL POC Glucose (mg/dL) 148 H 224 H 183 H (75-99) mg/dL Homocysteine (4.00-14.00) umol/L Assessment and Plan Plan: This is a 54-year-old female who came in with chest pain and found to have a non-STEMI. Upon cardiac catheterization the extent of her vasculopathy was found to be extensive. Following this cardiac cath she became very unsteady with her gait leading to neurology to be consulted. Her computed tomography scan head shows extensive multifocal/ territory ischemic infarcts with edema but without mass effect. These infarcts have remained stable over the last 24 hours. The distribution these infarcts is consistent with a cardioembolic etiology. This patient was unaware prior to admission that she had extensive diabetes, atherosclerotic and vascular disease. This case was discussed today with interventional neuroradiology at [facility]. At this time this patient would not be a good candidate for endovascular intervention for the degrees of stenosis intracranially. The pr imary issue at hand is the extensive vascular disease involving her coronary arteries. If this patient is not a candidate for proceeding with intervention here at [facility] would recommend this patient be transferred to [facility] for Cardio=Thoracic. Due to this patient's neurological condition if she undergoes cardiac surgery it would be best to be in an area which she can receive a higher level of neuro intensive ICU care after stenting. This patient continues to be stable clinically. Her NIH stroke scale still remains at 0 there are no focal deficits. The strokes appear stable without hemorrhagic conversion or increasing edema. The patient can continue on antiplatelet therapy for now. Recommendations 1. Avoid hypotension maintain systolic blood pressure : 120-140.. DBP between 80-90. Any blood pressures below 120 please contact [facility] neurology. Due to the extensive strokes and reperfusion that is occurring we want to avoid hypotension which can extend the stroke. 2. Continue with antiplatelet therapy 81 mg aspirin 3. Continue with neuro checks every 2 hours while awake. 4. Recommend transfer to [facility] for further evaluation by cardiothoracic surgery. This patient's prognosis remains guarded. Further recommendations will be made as this case evolves. Thank you for allowing me to produce pain in care of your patient.
[2019-08-01 20:49] LABS: Glucose,Whole Blood 218 mg/dL (75-99)
[2019-08-01] MEDS ORDERED: METOPROLOL TARTRATE 12.5 MG TAB PO SCH ×2 (21:30)
[2019-08-01] MEDS: ASPIRIN 81 MG PO SCH (21:36)
--- NOTE | 2019-08-01 21:51 | P.PN ---
Subjective This is a pleasant 54 years old female with no significant past medical history. Patient is admitted on 07/27 where she was transferred from [facility], initially patient presented with chest pain for 10-14 days. Hessel like heartburn and found to have elevated troponin, and patient was transferred to [facility]. Patient is with subacute OH Patient underwent cardiac cath and found to have triple-vessel disease, with 60% stenosis to her left main coronary artery, and 80-90% stenosis to her diagonal branch of her left anterior descending coronary artery, a chronically occluded right coronary artery with collaterals. Ejection fraction 40-45% Patient To the ICU on nitro drip Cardiovascular team has been consulted for possible CABG surgery with Dr. Kelly Currently patient remains on heparin drip and insulin drip for better sugar controlled, as well as baby aspirin. However patient was noticed to be bumping into stuff when she walks (patient states this is not new problem for her) also she has difficulty localizing subject in front of her for example her fan, stroke was suspected which was showed on CT of the brain. Which was done today showing abnormal area of lucency in the right parietal region may represent an infarct, by metastasis is not exclude. CTA of the brain showed multiple foci of cerebral edema in the right cerebral hemisphere. No enhancing focus seen to suggest metastatic disease, these findings could relate to multiple acute or subacute ischemic infarct However patient is fully awake and oriented, she denies blurred vision or slurred speech, no weakness or numbness in extremities. No headaches. She is hemodynamically stable Labs reviewed showing Leukocytosis 13.1 K, sodium 134, creatinine 0.4, glucose controlled, liver enzymes slightly elevated with AST 258 and ALT 117 , TSH w ithin normal limits. Troponin is elevated on admission of 16.7. TSH 6.1 and free T4 1 0.3. Hemoglobin A1c is 13.3%. UA is not suggestive of infection. Current over a still detected. Hepatitis panel was negative Chest x-ray: COPD. Carotid Doppler showing 50-69% stenosis of the proximal right ICA MRI/A of the head and neck is ordered and pending 07/31/2019 Patient is seen today as follow-up in the ICU, she was sitting at the couch in the room without specific complaints she denies chest pain. No neurological complaints, no headache, no weakness or numbness, no blurred vision, no slurred speech no dizziness, no nausea vomiting or abdominal wound. Patient earlier found to have triple-vessel disease and cardiovascular surgery is been consulted for surgical intervention is on hold due to her neuro deficits. There was concern regarding gait instability and MRI of the brain showing MRI of the prominent showing 5.4 cm parieto-occipital infarct with multiple small infarcts in the right hemisphere, suspicious for embolic phenomena from vascular origin. Because of his neurological team were concern for hemorrhagic transformation so heparin drip was stopped and patient On aspirin only. Repeat CT of the brain is recommended tomorrow to ensure no hemorrhagic transformation, also CTA to assess vascular stenosis. Carotid Doppler showing 50-69% stenosis of the proximal right ICA Hypercoagulable workup is initiated by neuro team. Patient currently on neuro check: With blood pressure and sugar better controlled. Lap showing WBCs 12.8, sodium 135, potassium 3.3 and creatinine 0.3 Insulin drip was stopped and started Levemir 15 units plus sliding scale. Also she is on metoprolol 50 mg twice daily Prognosis remains guarded 08/01/2019 Patient remains in the ICU, clinically the same with no new neurological deficit, fully awake and alert with no headache. Vitals are stable. Labs reviewed with no significant abnormality and sugar stable. In short the patient presents with non-STEMI, she underwent cardiac cath found to have triple-vessel disease placed on heparin drip pending cardiovascular surgery evaluation for bypass surgery, patient found to have ataxia however comp uted tomography scan of the brain showing multiple right-sided cerebral infarct with larger about 5.4 cm because of concern for hemorrhagic transformation, plastic press molder recommended to hold heparin drip or subcutaneous heparin and to continue with baby aspirin for now. Repeat computed tomography scan of the brain this morning show no hemorrhage. I have lengthy discussion with Dr. Woods and her input is appreciated. 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 However because of her illness she is susceptible to thrombotic disease with showering emboli to the brain causing multiple strokes however clinically amazingly is doing well compared to her CAT scan/MRI of the brain findings. Because of her complexity patient needed to be transferred to her level of care, as per Dr. Woods recommendation patient going to [facility], she contacted the neuro surgical team at that hospital, prepped patient state to be decided when to resume anticoagulation at certain point that on but definitely not currently as they're still high risk of bleeding. However she needs to be evaluated for her heart disease by cardiothoracic surgeon as well I discussed the case with the case specialist, all transfer papers percent, and for confirmation I called the transferring center at [facility] at [phone] and they told me they don't have the bed for now. Also waiting for the accepting physician to call me. Patient communicates remains critical and she might deteriorate with more strokes and/or bleeding into the brain, she is high-risk for cardiac attack, arrest and/or . Per staff patient agrees to be transferred Review of systems CONSTITUTIONAL: No fever, no malaise, no fatigue. HEENT: No recent visual problems or hearing problems. Denied any sore throat. CARDIOVASCULAR: No orthopnea, PND, no palpitations, no syncope. PULMONARY: No shortness of breath, no cough, no hemoptysis. GASTROINTESTINAL: No diarrhea, no nausea, no vomiting, no abdominal pain. Normoactive bowel sounds. NEUROLOGICAL: No headaches, no weakness, no numbness. HEMATOLOGICAL: Denies any bleeding or petechiae. MUSCULOSKELETAL/RHEUMATOLOGICAL: Denies any joint pain, swelling, or any muscle pain. Active Medications Generic Name Dose Route Start Last Admin Trade Name Freq PRN Reason Stop Dose Admin Aspirin 81 mg 07/28/19 21:00 08/01/19 21:36 Aspirin PO 81 mg HS [facility] Administration Atorvastatin Calcium 80 mg 08/01/19 09:00 08/01/19 09:41 Lipitor PO 80 mg DAILY [facility] Administration Calcium Carbonate/Glycine 500 mg 07/31/19 01:15 08/01/19 00:54 Tums PO 500 mg TID PRN Administration Heartburn Sodium Chloride 1,000 mls @ 10 mls/hr 07/28/19 20:30 08/01/19 05:36 Saline 0.9% IV 75 mls/hr .Q24H [facility] Administration Ibuprofen 200 mg 07/30/19 08:06 07/30/19 08:25 Advil PO 200 mg Q4HR PRN Administration Pain or Fever > 100.5 Insulin Aspart 0 unit 07/31/19 12:30 08/01/19 17:09 Novolog SQ 2 unit ACHS [facility] Administration Protocol Insulin Detemir 15 unit 08/01/19 07:00 08/01/19 07:51 Levemir SQ 15 unit DAILY@0700 [facility] Administration Labetalol HCl 10 mg 07/28/19 23:37 Trandate IVP Q4H PRN Blood Pressure - High Lisinopril 5 mg 08/02/19 09:00 Zestril PO DAILY [facility] Metoprolol Tartrate 50 mg 08/02/19 09:00 Lopressor PO DAILY [facility] Metoprolol Tartrate 25 mg 08/01/19 21:30 Lopressor PO HS [facility] Miscellaneous Information 1 each 07/30/19 06:19 Potassium Per Protocol MISCELLANE DAILY PRN Per Protocol Protocol Nitroglycerin 0.4 mg 07/28/19 20:26 07/31/19 09:19 Nitrostat SUBLINGUAL 0.4 mg Q5M PRN Administration Chest Pain Ondansetron HCl 4 mg 07/28/19 23:01 07/28/19 23:30 Zofran IVP 4 mg Q6HR PRN Administration Nausea And Vomiting Pantoprazole Sodium 40 mg 07/31/19 09:00 08/01/19 08:04 Protonix IVP 40 mg DAILY [facility] Administration Potassium Chloride 20 meq 08/01/19 22:00 08/01/19 21:38 K-Dur 20 PO 08/01/19 23:01 20 meq Q1HR [facility] Administration Protocol Objective - Vital Signs Vital signs: Vital Signs Temp 98 F 08/01/19 12:00 Pulse 83 08/01/19 12:00 Resp 23 08/01/19 12:00 BP 115/83 08/01/19 12:00 Pulse Ox 96 08/01/19 12:00 Intake & Output 07/31/19 08/01/19 08/01/19 18:59 06:59 18:59 Intake Total 3105.935 4602 575 Output Total 0 1 400 Balance 6370.935 8475 175 Weight 81.3 kg Intake: IV 975 825 235 Sodium Chloride 0.9% 1, 975 825 235 000 ml @ 10 mls/hr IV . Q24H [facility] Rx#:[id number] Intake, IV Titration 217.514 100 100 Amount Heparin Sod,Pork in 0.45% 195.487 NaCl 25,000 unit In 0.45 % NaCl 1 250ml.bag @ 12 UNITS/KG/HR 8.52 mls/hr IV .Q24H [facility] Rx#: [id number] Insulin Regular 100 unit 22.027 In Sodium Chloride 0.9% 100 ml @ Per Protocol IV .Q0M [facility] Rx#:[id number] Magnesium Sulfate-D5w Pmx 100 100 1 gm In Dextrose/Water 1 100ml.bag @ 100 mls/hr IVPB Q1H [facility] Rx#: [id number] Oral 500 240 Output: Urine 0 1 400 Other: Voiding Method Toilet Toilet Toilet # Voids 1 1 1 # Bowel Movements 1 - Exam GENERAL: The patient is alert and oriented x3, not in any acute distress. Well developed, well nourished. HEENT: Pupils are round and equally reacting to light. EOMI. No scleral icterus. No conjunctival pallor. Normocephalic, atraumatic. No pharyngeal erythema. No t hyromegaly. CARDIOVASCULAR: S1 and S2 present. No murmurs, rubs, or gallops. PULMONARY: Chest is clear to auscultation, no wheezing or crackles. ABDOMEN: Soft, nontender, nondistended, normoactive bowel sounds. No palpable organomegaly. MUSCULOSKELETAL: No joint swelling or deformity. EXTREMITIES: No cyanosis, clubbing, or pedal edema. NEUROLOGICAL: Gross neurological examination did not reveal any focal deficits. SKIN: No rashes. no petechiae. - Labs CBC & Chem 7: 08/01/19 04:18 08/01/19 20:34 Labs: Abnormal Lab Results - Last 24 Hours (Table) 07/31/19 07/31/19 08/01/19 Range/Units 16:28 20:53 04:18 Sodium (137-145) mmol/L Potassium (3.5-5.1) mmol/L Creatinine (0.52-1.04) mg/dL Glucose (74-99) mg/dL POC Glucose (mg/dL) 179 H 234 H (75-99) mg/dL Homocysteine 2.94 L (4.00-14.00) umol/L 08/01/19 08/01/19 08/01/19 Range/Units 04:18 06:58 11:59 Sodium 135 L (137-145) mmol/L Potassium 3.4 L (3.5-5.1) mmol/L Creatinine 0.34 L (0.52-1.04) mg/dL Glucose 135 H (74-99) mg/dL POC Glucose (mg/dL) 148 H 224 H (75-99) mg/dL Homocysteine (4.00-14.00) umol/L Assessment and Plan Assessment: -Subacute myocardial infarction, with triple-vessel disease needing bypass surgery, echo showing Ischemic cardiomyopathy with ejection fraction 40-45%. --multiple foci of cerebral edema in the right cerebral hemisphere. With large parieto-occipital infarct about 5.4 cm higher risk for hemorrhagic transferred patient, vascular embolic phenomenon is suspected relate to multiple acute or subacute ischemic infarct -50-69% stenosis of the proximal right ICA -Diabetes mellitus with hyperglycemia -Hypertension -Noncompliance -Nicotine dependence -Dyslipidemia Plan: This is a pleasant 54 years old female who presents with subacute OH and possible right stroke. Vascular embolic source. Discontinue heparin drip on subcutaneous heparin and keep the patient on mechanical DVT prophylaxis, keep the patient on aspirin. Patient is medically stable to be transferred to medical Hospital at length in guarded prognosis Continue with metoprolol continue with hydration. Patient is followed closely by several consultants including pulmonary/critical care, document processing specialist, cardiovascular surgery and neurology. Neurological workup like CT of the brain and CT of the head and neck. Neuro check. Hypercoagulable workup Labs and medication were reviewed.. Continue same treatment. Continue with symptomatic treatment. Resume home medication. Monitor lytes and vitals. DVT and GI prophylaxis. Further recommendations of the clinical course of the patient DVT prophylaxis: heparin on hold, continue with mechanical prophylaxis only GI Prophylaxis: Ppi Prognosis is guarded Thank you for consulting us, we will follow up
[2019-08-02 04:17] VITALS: TEMP 98
[2019-08-02 05:00] LABS: Basophils % (A) 0 %; Eosinophils # (A) 0.3 k/uL (0-0.7); Eosinophils % (A) 3 %; HCT 38.1 % (34.0-46.0); HGB 12.9 gm/dL (11.4-16.0); Lymphocytes # (A) 3.5 k/uL (1.0-4.8); Lymphocytes % (A) 35 %; MCH 31.2 pg (25.0-35.0); MCHC 33.9 g/dL (31.0-37.0); MCV 92.2 fL (80.0-100.0); Mean Platelet Volume 8.8; Monocytes # (A) 0.7 k/uL (0-1.0); Monocytes % (A) 7 %; Neutrophils # (A) 5.3 k/uL (1.3-7.7); Neutrophils % (A) 53 %; Platelet Count 269 k/uL (150-450); RBC 4.13 m/uL (3.80-5.40); RDW 13.5 % (11.5-15.5)
[2019-08-02 05:17] LABS: Potassium 3.6 mmol/L (3.5-5.1)
[2019-08-02 05:18] LABS: African American GFR (CKD) >90 (>60 ml/min/1.73 sqM); Anion Gap 5 mmol/L; Blood Urea Nitrogen 7 mg/dL (7-17); Calcium 8.6 mg/dL (8.4-10.2); Carbon Dioxide 25 mmol/L (22-30); Chloride 105 mmol/L (98-107); Glucose 134 mg/dL (74-99); Magnesium 1.8 mg/dL (1.6-2.3); Non-African American GFR(CKD) >90 (>60 ml/min/1.73 sqM); Sodium 135 mmol/L (137-145)
[2019-08-02 06:39] LABS: Glucose,Whole Blood 158 mg/dL (75-99)
[2019-08-02] MEDS: INSULIN ASPART (NovoLOG) 100 UNIT/ML VIAL SQ SCH ×2 (06:39→12:07)
[2019-08-02] MEDS: INSULIN DETEMIR (LEVEMIR) 100 UNIT/ML SYR SQ SCH (06:39)
[2019-08-02] MEDS ORDERED: POTASSIUM CHLORIDE ER 20 MEQ TAB.ER PO SCH (07:00)
[2019-08-02] MEDS ORDERED: Magnesium Replacement Protocol 1 EACH MISC MISCELLANE PRN (07:46)
[2019-08-02] MEDS: MAGNESIUM SULFATE-D5W PMX 1 GM in DEXTROSE/WATER 1 100ML.BAG IVPB SCH ×2 (08:26→10:32)
[2019-08-02] MEDS: PANTOPRAZOLE 40 MG/10 ML VIAL IVP SCH (08:27)
[2019-08-02] MEDS: ATORVASTATIN 80 MG TAB PO SCH (08:27)
[2019-08-02] MEDS ORDERED: LISINOPRIL 5 MG TAB PO SCH (09:00)
[2019-08-02] MEDS ORDERED: METOPROLOL TARTRATE 50 MG TAB PO SCH (09:00)
[2019-08-02 10:50] VITALS: BMI 28.4
[2019-08-02 11:49] LABS: Anti-Thrombin III Antigen 88 % (80 - 120); Protein S Antigen 115 % (50 - 140)
[2019-08-02 11:56] LABS: Glucose,Whole Blood 204 mg/dL (75-99)
[2019-08-02 12:08] VITALS: BP 155/96; PULSE 66; RESP 18
[2019-08-02] MEDS ORDERED: LISINOPRIL 10 MG TAB PO SCH (12:15)
--- NOTE | 2019-08-02 12:21 | P.PN ---
Subjective Progress Note Date: 08/02/19 Principal diagnosis: Multivessel coronary artery disease, non-ST elevated myocardial infarction this admission. This is a 54-year-old female patient who does not follow with a primary care physician on a regular basis. She reports that she has not seen a primary care physician in over 30 years. Patient denies any past medical history. She presented to the emergency department yesterday at [facility] with complaints of severe chest pain which radiated across her back and down both of her arms to her elbows. She describes the pain as a heartburn type pain which had been present for about 2-3 weeks. She has been taking antacids without any relief. Her and daughters encouraged her to seek medical attention as the pain wasn't getting any better. She denies any complaints of fever, chills, nausea, vomiting, shortness of breath, presyncope, syncope or palpitations associated with the pain. A 12-lead EKG was completed which showed Q wave pattern with mild STT changes in her inferior leads which were suggestive of a possible subacute myocardial infarction. Her lab results at [facility] showed a WBC count 13.1, hemoglobin 17.0, hematocrit 48.9, elevated blood glucose of 531, AST 37 and a troponin of 16.0. Subsequently, the patient was transferred here to [facility] for further evaluation and treatment recommendations. She was seen by Dr. Jack from [facility] and a cardiac catheterization was performed which demonstrated a 60% stenosis to her left main coronary artery, and 80-90% stenosis to her diagonal branch of her left anterior descending coronary artery, a chronically occluded right coronary artery and collaterals to her distal right coronary artery from her circumflex coronary artery. For further evaluation a 2-D echocardiogram was completed which showed her to have an overall left ventricular systolic function to be mild to moderately impaired with an ejection fraction between 40 and 45%, mild mitral valve regurgitation, mild tricuspid valve regurgitation and trace to mild pulmonic valve regurgitation. Due to the patient's presenting symptoms, elevated troponins, and heart catheterization results Dr. Dru Kelly from cardiothoracic surgery was consulted for further evaluation and recommendations on myocardial revascularization surgery. POD #5 left heart catheterization with selective coronary angiography performed by Dr. Jack. The patient was seen in follow-up today after bedside in the intensive care unit. She is sitting up to the bedside chair and she is in no acute distress. She remained hemodynamically stable and is currently on no inotropic or pressor support. She denies any further complaints of chest pain or shortness of breath and reports that she feels well this morning. She is alert, and oriented 3 with no focal neurological deficits. Her oxygen saturations are 96% on room air. She is achieving 1250 mL on her incentive spirometry. The patient reports that there are plans for her to be transferred to [facility] for further evaluation and treatment for her stroke. Objective - Vital Signs Vital signs: Vital Signs Temp 98 F 08/02/19 12:00 Pulse 66 08/02/19 12:00 Resp 18 08/02/19 12:00 BP 155/96 08/02/19 12:00 Pulse Ox 96 08/02/19 12:00 Intake & Output 08/01/19 08/02/19 08/02/19 18:59 06:59 18:59 Intake Total 1135 460 200 Output Total 1050 Balance 85 460 200 Weight 80 kg 80 kg Intake: IV 315 10 Sodium Chloride 0.9% 1, 315 10 000 ml @ 10 mls/hr IV . Q24H [facility] Rx#:[id number] Intake, IV Titration 100 Amount Magnesium Sulfate-D5w Pmx 100 1 gm In Dextrose/Water 1 100ml.bag @ 100 mls/hr IVPB Q1H [facility] Rx#: [id number] Oral 720 450 200 Output: Urine 1050 Other: Voiding Method Toilet Toilet # Voids 1 2 1 - Exam This is a pleasant 54-year-old female patient who is sitting up in bed in the intensive care unit. She is in no acute distress, remains hemodynamically stable and is currently on no inotropic or pressor support. Oxygen saturations are 96% on room air. - Constitutional General appearance: Present: average body habitus, cooperative, no acute distress - EENT Eyes: Present: PERRLA, normal appearance. Absent: scleral icterus ENT: Present: hearing grossly normal, normal oropharynx - Neck Details: Neck is supple, no JVD, no lymphadenopathy. Carotids: bilateral: bruit present - Respiratory Details: Lungs sounds are essentially clear throughout. No wheezes, rhonchi or crackles. Respirations are symmetrical and nonlabored. Oxygen saturation 96% on room air. Achieving 1250 mL on her incentive spirometry. - Cardiovascular Details: Regular rhythm and rate. S1 and S2 present, negative for S3, gallop or murmur. - Gastrointestinal Gastrointestinal Comment(s): Abdomen is soft, nontender and nondistended. Active bowel sounds present in all 4 abdominal quadrants. No guarding or rigidity. No organomegaly. - Integumentary Integumentary Comment(s): Skin is warm and dry. No clubbing or cyanosis present. No rash or abnormal pigmentation is present. - Neurologic Neurologic: Present: CNII-XII intact - Musculoskeletal Musculoskeletal: Present: gait normal, strength equal bilaterally - Psychiatric Psychiatric: Present: A&O x's 3, appropriate affect, intact judgment & insight - Labs CBC & Chem 7: 08/02/19 04:07 08/02/19 04:07 Labs: Abnormal Lab Results - Last 24 Hours (Table) 08/01/19 08/01/19 08/02/19 Range/Units 17:05 20:48 04:07 Sodium 135 L (137-145) mmol/L Creatinine 0.38 L (0.52-1.04) mg/dL Glucose 134 H (74-99) mg/dL POC Glucose (mg/dL) 183 H 218 H (75-99) mg/dL 08/02/19 08/02/19 Range/Units 06:38 11:54 Sodium (137-145) mmol/L Creatinine (0.52-1.04) mg/dL Glucose (74-99) mg/dL POC Glucose (mg/dL) 158 H 204 H (75-99) mg/dL Assessment and Plan Assessment: 1. Symptomatic multivessel coronary artery disease with left main disease 2. Acute non-ST elevated myocardial infarction this admission 3. Multiple acute or subacute ischemic cerebral infarct 4. Hypertension 5. Dyslipidemia 6. Newly diagnosed diabetes mellitus, admission glucose of 531, hemoglobin A1c is 13.3 7. Chronic ongoing tobacco abuse 8. Elevated transaminase, AST is 258 and ALT is 117 9. Mild leukocytosis 10. Right internal carotid artery stenosis of 50-69% 11. Gait dysfunction Plan: 1. Continue to optimize with medical management, aspirin, statin, beta ed, and blood sugar control. 2. The patient's myocardial revascularization surgery will be placed on hold du e to the findings of multiple acute/subacute cerebral infarct. She would be considered high risk surgical candidate at this time. The patient can be reevaluated in 4-6 weeks to consider myocardial revascularization surgery when she has recovered from her stroke. 3. Encourage use of her incentive spirometry 10 times every hour while awake. 4. The importance of smoking cessation was discussed with the patient. 5. Per neurology recommendations the patient may be transferred to [facility] to the neuro intensive care unit. 6. Medical management/diabetic management per primary care service recommendations. 7. More recommendations to follow based on patient's clinical course. Time with Patient: Less than 30
--- NOTE | 2019-08-02 12:44 | P.DS ---
Providers Date of admission: 07/28/19 20:03 Attending physician: Harry Jack Consults: 07/28/19 22:50 Consult Physician Routine Consulting Provider: Dru Kelly Consult Reason/Comments: Cardiac Surgery Consult Do you want consulting provider notified?: Already Contacted 07/29/19 02:41 Consult Physician Routine Consulting Provider: Tye Field Consult Reason/Comments: Post Cardiac Cath Management Do you want consulting provider notified?: Already Contacted 07/29/19 07:56 Consult Physician Routine Consulting Provider: Nilda Dodson Consult Reason/Comments: TVD / ICU management Do you want consulting provider notified?: Already Contacted 07/29/19 23:29 Consult Physician Routine Consulting Provider: Abel Velazquez Consult Reason/Comments: General Medical Management Do you want consulting provider notified?: Yes 07/30/19 11:39 Consult Physician Routine Consulting Provider: Allie Segura Consult Reason/Comments: Unsteady gait dysfunction preoperative evaluation Do you want consulting provider notified?: Yes 07/31/19 09:27 Consult Physician Routine Consulting Provider: Leona Woods Consult Reason/Comments: possible stroke Do you want consulting provider notified?: Yes Primary care physician: Stated None Hospital Course: Diagnoses: -Subacute myocardial infarction versus non-STEMI, with triple-vessel disease needing bypass surgery, echo showing Ischemic cardiomyopathy with ejection fraction 40-45%. -multiple foci of cerebral edema and infarcts in the right cerebral hemisphere. With large parieto-occipital infarct about 5.4 cm higher risk for hemorrhagic transferred patient, vascular embolic phenomenon is suspected relate to multiple acute or subacute ischemic infarct -50-69% stenosis of the proximal right ICA -Diabetes mellitus with hyperglycemia -Hypertension -Noncompliance -Nicotine dependence -Dyslipidemia Hospital course: This is a pleasant 54 years old female with no significant past medical history. She does not follow up with physician and she is not on medication at home. Patient is admitted on 07/27 where she was transferred from [facility], initially patient presented with chest pain for 10-14 days. [place] like heartburn and found to have elevated troponin, and patient was transferred to [facility]. Patient is with subacute OH/non-STEMI Patient underwent cardiac cath and found to have triple-vessel disease, with 60% stenosis to her left main coronary artery, and 80-90% stenosis to her diagonal branch of her left anterior descending coronary artery, a chronically occluded right coronary artery with collaterals. Ejection fraction 40-45%. Cardiovascular team were initially consulted for possible CABG bypass surgery. She was placed on heparin drip. Patient To the ICU on nitro drip Cardiovascular team has been consulted for possible CABG surgery and patient kept on heparin drip as well as baby aspirin. However patient was noticed to be bumping into stuff when she walks (patient states this is not new problem for her) also she has difficulty localizing subject in front of her for example her fan, stroke was suspected which was showed on CT of the brain. Which was done today showing abnormal area of lucency in the right parietal region may represent an infarct, MRI of the prominent showing 5.4 cm parieto-occipital infarct with multiple small infarcts in the right hemisphere, suspicious for embolic phenomena from vascular origin. Because of his neurological team were concern for hemorrhagic transformation so heparin drip was stopped and patient On aspirin only. Repeat CT of the brain showed stable lesions with no hemorrhage transformation Because of its complex neurovascular nature of her illness, it was recommended by neurologist and cardiovascular surgery team patient to be transferred to higher level of care. Currently heparin drip and subcutaneous heparin were discontinued and patient kept only on aspirin 81 mg daily. Risk factor patient found to have new onset diabetes with hemoglobin A1c elevated at 13.3%, she smokes about less than a pack per day Amazingly despite her extensive abnormality in her heart and brain imaging patient clinically is doing well, she denies headache or dizziness. No blurred vision, no slurred speech, no weakness or numbness in extremities. Her gait is at baseline with only very slight ataxia. She denies chest pain or dyspnea. No nausea or vomiting. No other physical complaints. Patient wanted to be transferred to [facility], I discussed her case with the compressor service technician consulting marine engineer and he kindly accepted the patient Patient was found stable to be transferred in stable condition but guarded prognosis Problems and management plan were discussed with the patient and she verbalized understanding and acceptance Physical exam Gen: patient is a AAOx3, no distress CVS: S1-S2, RRR, no murmur Lungs: B/L CTA, no wheezing Abdomen: soft, no distention, no tenderness, positive bowel sounds Extremity: no leg edema or induration -Neuro: She is awake and alert 3, strength is 5/5 in all extremity. Sensation is intact. Meningeal signs are absent. No nystagmus. And cranial nerves are grossly intact. Gait is showing mild ataxia Time spent more than 35 minutes Plan - Discharge Summary Discharge Rx Participant: No New Discharge Prescriptions: No Action No Known Home Medications Discharge Medication List No Known Home Medications 07/28/19 [History] Activity/Diet/Wound Care/Special Instructions: Patient will need indigent funds at d/c.
--- NOTE | 2019-08-02 12:53 | P.VSCSTY ---
Greater Saphenous Vein Mapping This is bilateral lower extremity greater saphenous vein mapping. Date of service: 07/29/2019 Vein quality and ultrasound appearance: We see no endoluminal thrombus or wall changes.. Vein size groin right : 7.2 x 6.3 groin left: 5.0 x 6.2 High thigh right: 4.7 x 5.2 high thigh left: 5.6 x 4.3 Mid thigh right: 5.1 x 2.5 mid thigh left: 4.0 x 3.1 Above-knee right: 4.9 x 2.9 above- knee left: 4.6 x 3.8 Below knee right: 3.8 x 2.2 below-knee left: 5.4 x 5.3 Mid calf right: 2.5 x 2.5 mid calf left: 4.5 x 3.6 Ankle right: 3.4 x 3.6 ankle left: 3.9 x 3.0 Impression: Usable bilateral greater saphenous vein..
--- NOTE | 2019-08-02 12:54 | P.ARTDOP ---
Arterial Doppler LOWER EXTREMITY ARTERIAL DOPPLER: DATE OF SERVICE: 07/29/2019 Reason for study: Preop CABG. Doppler waveforms: Multiphasic bilaterally throughout. Pulse volume recording: []. Pressure gradients: None. Ankle-brachial indices: Greater than 1 bilaterally. Toe brachial indices: 1.17 on the right, 105 on the left Impression: Normal study.
--- NOTE | 2019-08-02 12:59 | P.PN ---
Subjective Progress Note Date: 08/02/19 Principal diagnosis: Acute non-ST elevation myocardial infarction On today's evaluation of 07/30/2019, the patient has no specific complaints she is resting comfortably in bed. She remains on IV heparin. She is free of any angina. She is awaiting cardiac bypass surgery that will be done on Wednesday which is 2 days from now. No chest pain. She is a chronic smoker. Her FEV1 is order of 47% of predicted consistent with moderately restrictive disease related to her poor effort. Her exhalation was less than 6 seconds and this is a suboptimal spirometry which is noted with reflection of an underlying lung capacity. She gave a very poor effort on these spirometry is. The patient was also noted to be somewhat steady her gait. I think she needs to be investigated further with a CAT scan of the brain as part of her workup or preop workup for cardiac surgery. No other new complaints otherwise for now. She looks a bit indifferent about her health. Her STS score and is to be also calculated. Patient was evaluated today on 07/31/19, patient is resting in bed, denies any specific complaints, patient is asymptomatic. Denies any chest pain, however her MRI showed acute areas of edema involving the right parietal occipital lobe and right frontal lobe as well as the right posterior parietal lobe. This is all suggestive of acute vascular insult from embolic process. Patient denies any headache, denies any blurred vision, according to the nurse taking care of the patient she was noted to be unsteady on her feet earlier. But the patient otherwise is asymptomatic. And she is yet to be seen by neurology on consultation. Her bypass surgery is presently on hold. Her labs were reviewed, electrolytes are relatively normal except for slightly low potassium. Patient remains on heparin with a PTT of 56.9. CBC is relatively normal. Patient was reevaluated today on 08/01/19, patient remains in the ICU, she is doing surprisingly well. Her presentation was a presentation of non-ST elevation myocardial infarction, and her cardiac catheterization showed signi ficant coronary artery disease. Patient was being considered for myocardial revascularization, however the patient developed acute CVA, most likely cardioembolic in nature. Hence her surgery is presently on hold, stenting is being considered. Patient was reevaluated today on 08/02/19, patient is doing well, relatively asymptomatic. Patient is being considered for transfer to either [facility] or possibly [facility]. Patient denies any headache no blurred vision no dizziness, no cough no wheezing no shortness of breath and no chest pain. Objective - Vital Signs Vital signs: Vital Signs Temp 98 F 08/02/19 12:00 Pulse 66 08/02/19 12:00 Resp 18 08/02/19 12:00 BP 155/96 08/02/19 12:00 Pulse Ox 96 08/02/19 12:00 Intake & Output 08/01/19 08/02/19 08/02/19 18:59 06:59 18:59 Intake Total 1135 460 200 Output Total 1050 Balance 85 460 200 Weight 80 kg 80 kg Intake: IV 315 10 Sodium Chloride 0.9% 1, 315 10 000 ml @ 10 mls/hr IV . Q24H [facility] Rx#:[id number] Intake, IV Titration 100 Amount Magnesium Sulfate-D5w Pmx 100 1 gm In Dextrose/Water 1 100ml.bag @ 100 mls/hr IVPB Q1H [facility] Rx#: [id number] Oral 720 450 200 Output: Urine 1050 Other: Voiding Method Toilet Toilet # Voids 1 2 1 - Exam Physical Exam: Revealed 54-year-old female in no distress. Remains on room air, Head: Atraumatic, normocephalic. HEENT:[Neck is supple.] [No neck masses.] [No thyromegaly.] [No JVD.] Chest: [Clear throughout, no crackles, no rhonchi, no wheezes.] Cardiac Exam: [Normal S1 and S2, no S3 gallop, no murmur.] Abdomen: [Soft, nontender, no megaly, no rebound, no guarding, normal bowel sounds.] Extremities: [No clubbing, no edema, no cyanosis.] Neurological Exam: [No focal neurologic deficit.] No gross focal neurologic deficit is noted. Psychiatric: Normal mood, affect and normal mental status examination. Skin: No rashes. - Labs CBC & Chem 7: 08/02/19 04:07 08/02/19 04:07 Labs: Abnormal Lab Results - Last 24 Hours (Table) 08/01/19 08/01/19 08/02/19 Range/Units 17:05 20:48 04:07 Sodium 135 L (137-145) mmol/L Creatinine 0.38 L (0.52-1.04) mg/dL Glucose 134 H (74-99) mg/dL POC Glucose (mg/dL) 183 H 218 H (75-99) mg/dL 08/02/19 08/02/19 Range/Units 06:38 11:54 Sodium (137-145) mmol/L Creatinine (0.52-1.04) mg/dL Glucose (74-99) mg/dL POC Glucose (mg/dL) 158 H 204 H (75-99) mg/dL Assessment and Plan Assessment: Impression: Acute non-ST segment elevation myocardial infarction Multivessel coronary artery disease as noted on cardiac catheterization. Acute CVA/embolic event as noted on MRI of the brain. 2 diabetes. Benign essential hypertension. Dyslipidemia. Right carotid artery disease in the range of 50-69%. Recommendation: Continue present supportive care measures. Bypass surgery is presently on hold. Patient is being considered for transfer. Continue metoprolol. Continue sliding scale coverage. Keep blood sugar between 80 to 130. Agree with transfer plans either to [facility] or [facility]. Time with Patient: Less than 30
[2019-08-02 13:43] LABS: APTT 44 Sec(s) (<43); APTT 1:1 Mix 40 Sec(s) (<43); Dilute Russell Viper Venom 39 Sec(s) (<44)
--- NOTE | 2019-08-02 17:12 | CONS ---
ANN MARIE Hammonds is a 54-year-old lady with history of diabetes, hypertension that is admitted to hospital with acute coronary syndrome, underwent cardiac catheterization that revealed significant left main and 3 vessel coronary artery disease, which she has also been diagnosed with a stroke on this admission. Hence, the open-heart surgery is currently being delayed. She is currently on aspirin, Lipitor, insulin, Lopressor, Zestril. Clinically she is doing well and is free of symptoms. On exam, blood pressure is elevated at 155/96, heart rate is 66, respiratory rate is 18, afebrile. Chest exam reveals diminished air entry at the bases. Heart exam reveals first and second heart sounds. No gallop. No murmur. Abdomen is soft. Exam of the extremities did not reveal any edema. Peripheral pulses are felt. LABS: Show a hemoglobin of 12.9, creatinine is 0.38. ASSESSMENT: 1. Three-vessel coronary artery disease, awaiting surgery. 2. Cerebrovascular accident. PLAN: Blood pressure is poorly controlled. I am going to increase the dose of Zestril to 10 mg daily. MMODL / IJN: [id number] /
[2019-08-03] MEDS ORDERED: PANTOPRAZOLE 40 MG TABLET PO SCH (07:30)
[2019-08-03 11:49] LABS: Protein C (Activity) 140 % (71-138)
[2019-08-03 12:09] LABS: Anti-Thrombin III Activity 90 % (79-109)
[2019-08-04 10:55] LABS: Protein C Antigen 109 % (72-160)
== END 2019-08-02 13:35 | disposition short-term general hospital (02) | DRG 280 ==
LOC: 2SICU 20:03
PROVIDERS: ADMIT Internal Medicine Cardiovascular Disease; ATTEND Internal Medicine Cardiovascular Disease
PROC: B2111ZZ Fluoroscopy of Multiple Coronary Arteries using Low Osmolar Contrast (ICD-10-PCS; 2019-07-28)
PROC: 4A023N7 Measurement of Cardiac Sampling and Pressure, Left Heart, Percutaneous Approach (ICD-10-PCS; principal; 2019-07-28 19:30)
DX: I21.4 Non-ST elevation (NSTEMI) myocardial infarction (principal); G93.6 Cerebral edema; I63.40 Cerebral infarction due to embolism of unspecified cerebral artery; E11.65 Type 2 diabetes mellitus with hyperglycemia; J44.9 Chronic obstructive pulmonary disease, unspecified; I25.10 Atherosclerotic heart disease of native coronary artery without angina pectoris; I10 Essential (primary) hypertension; F41.9 Anxiety disorder, unspecified; I08.8 Other rheumatic multiple valve diseases; E78.5 Hyperlipidemia, unspecified; F17.210 Nicotine dependence, cigarettes, uncomplicated; I65.21 Occlusion and stenosis of right carotid artery; E78.1 Pure hyperglyceridemia; D72.829 Elevated white blood cell count, unspecified; I25.5 Ischemic cardiomyopathy; R29.700 NIHSS score 0; R74.0 Nonspecific elevation of levels of transaminase and lactic acid dehydrogenase [LDH]; R27.0 Ataxia, unspecified; Z71.6 Tobacco abuse counseling; Z71.3 Dietary counseling and surveillance; Z91.19 Patient's noncompliance with other medical treatment and regimen; Z88.6 Allergy status to analgesic agent; Z82.49 Family history of ischemic heart disease and other diseases of the circulatory system
CPT/HCPCS: 70450; 70460; 70496; 70498; 70544; 70549; 70553; 71046; 80048; 80053; 80061; 80074; 81003; 81241; 81291; 83036; 83090; 83735; 84132; 84439; 84443; 84484; 85025; 85300; 85301; 85302; 85303; 85305; 85306; 85610; 85613; 85730; 87070; 93306; 93458; 93880; 93922; 93970; 94150